=== PATIENT | male | born 1950 | race Caucasian/White ===

== ENCOUNTER 2017-11-09 15:02 | Inpatient (IN) | payer MEDICARE, MEDICAID ==
[~2017-11-09 15:02] MED LIST: Albuterol Nebulizer 2.5mg/3mL HHN PRN
--- NOTE | 2017-11-09 15:25 | ED Physician Chart ---
ED Chief Complaint/HPI - Patient Information Date Seen:: 11/09/17 Time Seen:: 15:17 Chief Complaint:: Pt has been noticed to have increased agitation since about 8 am today. History of Present Illness:: Brought in by caregiver Jasper as well as as400 administrator Mr. Ellsworth because pt was noticed to have increased agitation since about 8 am today. Pt at times hits his head with his hands, but no apparent injury has been noticed. Pt has h/ o dementia and is essentially nonverbal. Pt does not cooperate. H & P are thus limited. Info is primarily from caregiver. Allergies:: Allergies Allergy/AdvReac Type Severity Reaction Status Date / Time No Known Allergies Allergy Verified 11/09/17 15:09 Vitals:: Vital Signs - 8 hr 11/09/17 15:09 Temp 98.4 F HR 89 RR 17 BP 126/81 O2 Sat % 97 Historian:: Medical Records, Other (caregiver Jasper) Family MD/PCP:: Dr. Suero LMP:: N/A Review:: Nurse's Note Reviewed ED Review of Systems - Review of Systems General/Constitutional: No fever, Other (Pt does not cooperate for ROS) Skin: No skin lesions, No rash, No bruising Pulmonary: No SOB GI: No nausea, No vomiting, No diarrhea, No pain ED Past Medical History - Past Medical History Past Medical History: HTN, Thyroid disorder, Dementia Family History: Other (Pt does not cooperate to provide info on FHx.) Social History: Care Facility Surgical History: other (Pt does not cooperate to provide info on Surgical Hx.) Psychiatricy History: Dementia Medication: Reviewed Family Medical History - Family Member Mother History Unknown: Yes Ethnicity: Non- Other Medical History: Pt non-verbal. Unable to obtain family history. ED Physical Exam - Physical Examination General/Constitutional: Awake, Well-developed, well-nourished, Alert, No distress Other Gen/Cons comments:: Breathes comfortably. Pt is uncooperative and at times becomes agitated. Pt does not follow instructions and repeatedly attempts to climb out of gurney. Head: Atraumatic Eyes: Lids, conjuctiva normal, PERRL, EOMI Skin: No rash, No ecchymosis, Well hydrated, No lymphadenopathy ENMT: External ears, nose nl, TM canals nl, Nasal exam nl, Oropharynx nl, Tonsils nl Other ENMT comments:: Poor dentition with multiple missing teeth. Neck: Nontender, Full ROM w/o pain, No JVD, No nuchal rigidity, No mass, No stridor Respiratory: Nl effort/Exclusion, Clear to Auscultation, No Wheeze/Rhonchi/Rales Cardio Vascular: RRR, No murmur, gallop, rubs GI: No tenderness/rebounding/guarding, No organomegaly, No hernia, Normal BS's, Nondistended, No McBurney tenderness Other GI comments:: Abdomen is soft. Extremities: No tenderness or effusion, Full ROM, normal strength in all extremities, No edema Other Neuro/Psych comments:: alert and responsive to voice and tactile stimuli. Pt is nonverbal. Spontaneous movements noticed in all 4 extremities. Pt does not cooperate for full neurological exam. Misc: Normal back, No paraspinal tenderness ED Labs/Radiology/EKG Results - Lab Results Results: Laboratory Tests 11/09/17 11/09/17 11/09/17 15:49 15:49 15:49 WBC 10.2 RBC 4.92 Hgb 14.5 Hct 43.1 MCV 87.6 MCH 29.4 MCHC Differential 33.6 RDW 12.9 Plt Count 339 MPV 8.0 Neutrophils % 70.0 Lymphocytes % 22.0 Monocytes % 6.5 Eosinophils % 0.9 Basophils % 0.6 PT 9.9 INR 0.95 PTT (Actin FS) 23.6 L Sodium 131 L Potassium 3.3 L Chloride 100 Carbon Dioxide 21.4 Anion Gap 12.9 BUN 13 Creatinine 0.9 Est GFR ( Amer) > 60.0 Est GFR (Non-Af Amer) > 60.0 BUN/Creatinine Ratio 14.4 Glucose 107 H Calcium 9.2 Total Bilirubin 0.5 AST 12 L ALT 12 Alkaline Phosphatase 112 H Troponin I Total Protein 6.6 Albumin 4.1 L Globulin 2.5 Albumin/Globulin Ratio 1.6 Urine Source Urine Color Urine Clarity Urine pH Ur Specific [place] Urine Protein Urine Glucose (UA) Urine Ketones Urine Blood Urine Nitrate Urine Bilirubin Urine Urobilinogen Ur Leukocyte Esterase Urine RBC Urine WBC Ur Epithelial Cells Urine Bacteria 11/09/17 11/09/17 15:49 16:15 WBC RBC Hgb Hct MCV MCH MCHC Differential RDW Plt Count MPV Neutrophils % Lymphocytes % Monocytes % Eosinophils % Basophils % PT INR PTT (Actin FS) Sodium Potassium Chloride Carbon Dioxide Anion Gap BUN Creatinine Est GFR ( Amer) Est GFR (Non-Af Amer) BUN/Creatinine Ratio Glucose Calcium Total Bilirubin AST ALT Alkaline Phosphatase Troponin I < 0.01 L Total Protein Albumin Globulin Albumin/Globulin Ratio Urine Source CATH Urine Color STRAW Urine Clarity CLEAR Urine pH 6.0 Ur Specific [place] <= 1.005 Urine Protein NEGATIVE Urine Glucose (UA) NEGATIVE Urine Ketones NEGATIVE Urine Blood TRACE Urine Nitrate NEGATIVE Urine Bilirubin NEGATIVE Urine Urobilinogen 0.2 Ur Leukocyte Esterase NEGATIVE Urine RBC 2-5 H Urine WBC NONE SEEN Ur Epithelial Cells NONE SEEN Urine Bacteria NONE SEEN - EKG Interpretations EKG Time:: 15:52 Rate & Rhythm: NSR with VR 91 Comments:: LAE, LBBB, NSSTT changes. ED Septic Shock - . Is Septic Shock (SBP<90, OR Lactate>4 mmol\L) present?: No - <6hrs of presentation: Vital Signs: Vital Signs - 8 hr 11/09/17 15:09 Temp 98.4 F HR 89 RR 17 BP 126/81 O2 Sat % 97 ED Reassessment (Disposition) - Reassessment Reassessment:: 1715 Pt is now calm. Remaining lab results just became available. Pt has been cleared medically. 1720 Nursing staff related that Dr. Feliciano called and already decided to admit pt to Geropsych Unit, and Dr. Rojas is the in house medical physician for the patient. Reassessment Condition:: Improved - Diagnosis Diagnosis:: Dementia with increased agitation. Mild hypokalemia. - Patient Disposition Admitted to:: [facility] Admitting Medical Physician:: Mayito Rojas Admitting Psych Physician:: Stan Feliciano Time:: 17:20 Condition at Disposition:: Improved ED Discharge Plan - Patient Disposition Admit/Discharge/Transfer: Acute Care w/in this hosp
[2017-11-09] MEDS ORDERED: Haloperidol Lactate 5 mg/mL 1mL Vial ONE (15:42)
[2017-11-09] MEDS ORDERED: Haloperidol Lactate 5 mg/mL 1mL Vial IM STA (15:42)
[2017-11-09 16:10] LABS: % BASOPHILS 0.6 % (0.0-2.0); % EOSINOPHILS 0.9 % (0.0-5.0); % MONOCYTES 6.5 % (2.0-10.0); BASOPHILE ABSOLUTE 0.1 Th/cumm (0-0.2); EOSINOPHILE ABSOLUTE 0.1 Th/cmm (0.1-0.4); HEMATOCRIT 43.1 % (41.0-60); HEMOGLOBIN 14.5 gm/dL (12-16); LYMPHOCYTE ABSOLUTE 2.2 Th/cmm (1.5-3.0); MEAN CELL VOLUME 87.6 fl (80-99); MEAN CORPUSCULAR HEMOGLOBIN 29.4 pg (27.0-31.0); MEAN CORPUSCULAR HGB CONC 33.6 pg (28.0-36.0); MONOCYTE ABSOLUTE 0.7 Th/cmm (0.3-1.0); NEUTROPHILE ABSOLUTE 7.1 Th/cmm (1.8-8.0); PLATELET COUNT 339 Th/cmm (150-400); RED BLOOD COUNT 4.92 Mil/cmm (3.80-5.80); RED CELL DISTRIBUTION WIDTH 12.9 % (11.5-20.0); WHITE BLOOD COUNT 10.2 Th/cmm (4.8-10.8)
[2017-11-09 16:13] LABS: ALB/GLOB RATIO 1.6 (1.0-1.8); ALBUMIN 4.1 gm/dL (4.2-5.5); ALKALINE PHOSPHATASE 112 U/L (34-104); ANION GAP 12.9 (7.0-16.0); BILIRUBIN,TOTAL 0.5 mg/dL (0.3-1.0); BUN - UREA NITROGEN 13 mg/dL (7-25); CALCIUM SERUM 9.2 mg/dL (8.6-10.3); CARBON DIOXIDE 21.4 mEq/L (21.0-31.0); CHLORIDE 100 mEq/L (98-107); CREATININE - SERUM 0.9 mg/dL (0.7-1.3); GFR AFRICAN-AMERICAN > 60.0 ml/min (>90); GFR NON AFRICAN-AMERICAN > 60.0 ml/min; GLUCOSE 107 mg/dL (70-105); INR 0.95 (0.5-1.4); POTASSIUM SERUM 3.3 mEq/L (3.5-5.1); PROTHROMBIN TIME (TEST) 9.9 SECONDS (9.5-11.5); SGOT 12 U/L (13-39); SGPT/ALT 12 U/L (7-52); SODIUM SERUM 131 mEq/L (136-145); TOTAL PROTEIN,SERUM 6.6 gm/dL (6.0-8.3)
[2017-11-09 16:24] LABS: URINE MICROSCOPIC INDICATED? YES; URINE SOURCE CATH
[2017-11-09 16:26] LABS: URINE BILIRUBIN NEGATIVE (NEGATIVE); URINE BLOOD TRACE (NEGATIVE); URINE GLUCOSE (UA) NEGATIVE (NEGATIVE); URINE KETONE NEGATIVE (NEGATIVE); URINE LEUKOCYTE ESTERASE NEGATIVE (NEGATIVE); URINE NITRATE NEGATIVE (NEGATIVE); URINE PROTEIN NEGATIVE (NEGATIVE); URINE UROBILINOGEN 0.2 E.U./dL (0.2 - 1.0)
[2017-11-09 16:47] LABS: URINE CLARITY CLEAR (CLEAR); URINE COLOR STRAW
[2017-11-09 16:48] LABS: URINE BACTERIA NONE SEEN /hpf (NONE SEEN); URINE EPITHELIAL CELLS NONE SEEN /lpf (FEW); URINE WBC NONE SEEN /hpf (0-5)
[2017-11-09] MEDS ORDERED: Potassium Chloride 20 mEq ER Tab PO ONE (17:13)
[2017-11-09] MEDS ORDERED: Potassium Chloride Elixir 20 mEq /15 mL UDC ONE (17:24)
[2017-11-09] MEDS ORDERED: Maalox 30 mL Cup PO PRN (20:52)
[2017-11-09] MEDS ORDERED: Magnesium Hydroxide (MOM) 30 mL UDC PO PRN (20:52)
[2017-11-09 21:47] VITALS: BP 124/76
[2017-11-09] MEDS ORDERED: Codeine /Guaifenesin 200mg-20mg/10 mL UDC PO PRN (21:48)
[2017-11-10] MEDS: Levothyroxine 0.075 Mg Tab PO SCH (06:40)
[2017-11-10] MEDS: Benztropine 1 MG TAB PO SCH (08:19)
[2017-11-10] MEDS: Multivitamin Tab PO SCH (08:19)
[2017-11-10] MEDS ORDERED: Ferrous Sulfate 325 MG TAB PO SCH (09:00)
[2017-11-10] MEDS ORDERED: RISPERIDONE 2 MG PO SCH (09:00)
[2017-11-10] MEDS ORDERED: Fexofenadine 60 mg Tab PO SCH (09:00)
[2017-11-10] MEDS: Fluticasone Propionate 0.05mg/Actuation 16gm Nasal Spray NS SCH (09:35)
--- NOTE | 2017-11-10 10:03 | Psychosocial Evaluation ---
DATE OF SERVICE: PSYCHIATRIC INITIAL EVALUATION AND MENTAL STATUS EXAM PATIENT'S AGE: 67. SEX: Male. PHYSICIAN: Stan Feliciano MD, MPH. CHIEF COMPLAINT: Agitation and irritability. HISTORY OF PRESENT ILLNESS: The patient is a 67-year-old male who is living in [facility]. The patient has been extremely agitated and irritable in the [facility]dc and he has been hitting himself and hitting staff and other patients in the long term where he lives. The patient also is developmentally disabled and he belongs to [facility]. He was not able to follow any of staff directions. Upon arrival into the hospital, the patient was extremely irritable and agitated and tried to get out of the Emergency Room and became violent and he has to be given emergency medications to calm him down. The patient is still extremely irritable and agitated. During my interview, the patient also was actively responding and he was shouting and waving his hands inappropriately. He also was in angry and in irritable mood. PAST PSYCHIATRIC HISTORY: The patient has history of developmentally disabled and dementia. PAST MEDICAL HISTORY: The patient has no major medical problems. SOCIAL HISTORY: The patient lives in [facility]. No known alcohol or drug use. ALLERGIES: No known allergies. MENTAL STATUS EXAMINATION: The patient appeared age. Anxious. Irritable mood. Flat affect. Thought processes are disorganized. The patient did not answer questions regarding hallucinations or delusions because of his inability to answer questions coherently. He actively responded to stimuli. He is also easily agitated. He seems to be of moderate mental retardation, based on his verbal ability and on observations. ASSESSMENT: PRIMARY DIAGNOSIS: Unspecified psychosis. SECONDARY DIAGNOSIS: Moderate, mental disability. TREATMENT PLAN: Continue to monitor his behavior closely. Also, we will start Seroquel. We will discontinue Risperdal. We will monitor behavior. ESTIMATED LENGTH OF STAY: 5-7 days. THE PATIENT'S STRENGTHS AND WEAKNESSES: The patient has support from the long term. Weakness is his poor impulse control. AFTER DISCHARGE PLAN: The patient will return to [place] with plans for outpatient treatment. [facility]# [id number]
--- NOTE | 2017-11-10 20:08 | History & Physical ---
ADMIT DATE: 11/10/2017 HISTORY SOURCE: Reviewing the chart, talking to the staff. HISTORY OF PRESENT ILLNESS: A 67-year-old male admitted to Geropsych Unit at [facility] after the patient was noted to have increasing agitation, acute in onset. The patient was also hitting his head with his hands. The patient did not have any apparent injury. Does have underlying diagnosis of dementia. The patient was worked up in the ER and now subsequently admitted to the hospital for further care. PAST MEDICAL HISTORY: Remarkable for: 1. Alzheimer dementia. 2. Allergic rhinosinusitis. 3. Hypothyroidism. 4. DJD. 5. Hypertension. 6. Psychotic disorder. 7. History of anemia. MEDICATIONS AT HOME: He is taking p.r.n. albuterol inhaler, Norvasc, Cogentin, ferrous sulfate, Elisha, Flonase, Robitussin, Motrin, Synthroid, Ativan, milk of magnesia, multivitamin, Seroquel, Diovan, and Ambien. ALLERGIES: The patient is not allergic to medication. SOCIAL HISTORY: The patient resides in assisted living facility. The patient has no history of any smoking cigarette, alcohol or drug use. FAMILY MEDICAL HISTORY: Unknown. REVIEW OF SYSTEMS: Unable to get meaningful history from the patient. PHYSICAL EXAMINATION: GENERAL: A 67-year-old alert, awake, lying in the bed, unable to give any meaningful history. VITAL SIGNS: Temperature 98, pulse is 79, respiratory rate is 18, blood pressure 123/73. HEENT: Normocephalic, atraumatic. Extraocular muscles are intact. Tongue was pink and coated. No oral lesions. No exudate. NECK: Supple, no JVD, no hepatojugular reflex. No thyromegaly. No carotid bruit. HEART: Both heart sounds are regular. No S3, no S4. CHEST AND LUNGS: Equal in expansion, no wheezing, no crackles. ABDOMEN: Soft. No guarding, no rigidity. Bowel sounds present. No palpable mass. EXTREMITIES: No edema, no cyanosis, no calf tenderness. Diffuse osteoarthritic changes noted. NEUROLOGIC: Alert, awake, but not following any commands. AVAILABLE DIAGNOSTIC DATA: White count of 10.2, hemoglobin of 14.5, platelet count of 339. PT, PTT are normal. Sodium 131, potassium 3.3, chloride 100, CO2 21.4, BUN and creatinine is 13 and 0.9. Urinalysis is unremarkable. EKG has underlying left bundle branch block. CLINICAL IMPRESSION: 1. Acute exacerbation of psychotic disorder. 2. Hypertension. 3. Hypothyroidism. 4. DJD. 5. Dementia. 6. Hypokalemia. 7. High risk for fall. PLAN: The patient was admitted to [facility]. Geriatric psychiatric care as per Dr. Feliciano. Resume the patient's medication for hypertension, Diovan and Norvasc. Continue Synthroid for hypothyroidism. Continue to provide symptomatic care with inhalation therapy p.r.n., Motrin for the pain, cough syrup for cough along with nutritional support with multivitamin. Fall precautions will be given as well. General nursing care will be provided. Nutritional support will be added. Follow up lab will be done as well and will continue to follow this patient during his stay at [facility]. I sincerely thank you, Dr. Feliciano for giving me the opportunity to participate in the patient of yours. JOB# [id number]
[2017-11-10] MEDS: Fexofenadine 60 mg Tab PO SCH (22:38)
[2017-11-11] MEDS: Levothyroxine 0.075 Mg Tab PO SCH (06:41)
[2017-11-11 09:17] LABS: ALB/GLOB RATIO 1.5 (1.0-1.8); ALBUMIN 3.8 gm/dL (4.2-5.5); ALKALINE PHOSPHATASE 105 U/L (34-104); ANION GAP 10.7 (7.0-16.0); BILIRUBIN,TOTAL 0.5 mg/dL (0.3-1.0); BUN - UREA NITROGEN 13 mg/dL (7-25); CALCIUM SERUM 8.9 mg/dL (8.6-10.3); CARBON DIOXIDE 23.9 mEq/L (21.0-31.0); CHLORIDE 102 mEq/L (98-107); CREATININE - SERUM 0.8 mg/dL (0.7-1.3); GFR AFRICAN-AMERICAN > 60.0 ml/min (>90); GFR NON AFRICAN-AMERICAN > 60.0 ml/min; GLUCOSE 117 mg/dL (70-105); POTASSIUM SERUM 3.6 mEq/L (3.5-5.1); SGOT 20 U/L (13-39); SGPT/ALT 15 U/L (7-52); SODIUM SERUM 133 mEq/L (136-145); TOTAL PROTEIN,SERUM 6.3 gm/dL (6.0-8.3)
[2017-11-11] MEDS: Benztropine 1 MG TAB PO SCH (09:31)
[2017-11-11] MEDS: Multivitamin Tab PO SCH (09:32)
[2017-11-11] MEDS: Fexofenadine 60 mg Tab PO SCH ×2 (09:35→21:00)
[2017-11-11] MEDS: Fluticasone Propionate 0.05mg/Actuation 16gm Nasal Spray NS SCH (09:36)
--- NOTE | 2017-11-12 04:28 | Progress Notes ---
DATE: 11/11/2017 SUBJECTIVE: The patient seen and examined. The patient is lying in the bed. The patient is nonverbal. Discussed with nursing staff about a 24-hour event. The patient has been eating fairly well. The patient trying to communicate, but was unable to understand. PHYSICAL EXAMINATION: VITAL SIGNS: Temperature 97, pulse is 76, respiratory rate is 18, blood pressure 130/89. HEENT: No facial asymmetry. NECK: Supple, no JVD. HEART: Regular. CHEST: Equal in expansion, no wheezing, no crackles. ABDOMEN: Soft. EXTREMITIES: No edema. AVAILABLE DIAGNOSTIC DATA: Sodium 133, potassium 3.6, chloride 102, CO2 of 23.9, BUN and creatinine is 13 and 0.8, glucose of 117, alkaline phosphatase of 105, albumin of 3.8. CLINICAL IMPRESSION: 1. Alzheimer's type dementia. 2. Psychotic disorder. 3. Hypertension. 4. Hypothyroidism. 5. Degenerative joint disease. 6. Psychotic disorder. 7. Hypokalemia, resolved. PLAN: 1. Psych medications and follow up by psychiatrist. 2. Continue Synthroid. 3. Monitor blood pressure. 4. Antihypertensive medicine. 5. Fall precautions. 6. General nursing care. 7. Care plan reviewed and discussed with staff. JOB# [id number]
[2017-11-12] MEDS: Levothyroxine 0.075 Mg Tab PO SCH (06:38)
[2017-11-12] MEDS: Multivitamin Tab PO SCH (09:54)
[2017-11-12] MEDS: Fexofenadine 60 mg Tab PO SCH ×2 (09:55→20:13)
[2017-11-12] MEDS: Fluticasone Propionate 0.05mg/Actuation 16gm Nasal Spray NS SCH (09:57)
[2017-11-12] MEDS: Benztropine 1 MG TAB PO SCH (09:58)
--- NOTE | 2017-11-12 16:34 | Progress Notes ---
DATE: 11/11/2017 SUBJECTIVE: Chart reviewed and the patient interviewed. Also discussed the patient's condition with the staff and reviewed records and labs. The patient is still extremely irritable and anxious. The patient also is still easily agitated. Also, wandering around the unit confused. The patient also is actively responding and is talking to self and laughing inappropriately. Also, unable to answer any of the questions coherently. On the other hand, he seems to be slightly calmer than yesterday. ASSESSMENT: The patient is still agitated and psychotic. TREATMENT PLAN: Continue monitoring his behavior and his condition closely. Also, continue Seroquel same dose and we will continue to follow up. [facility]# [id number]
[2017-11-13] MEDS: Levothyroxine 0.075 Mg Tab PO SCH (06:35)
[2017-11-13] MEDS: Fluticasone Propionate 0.05mg/Actuation 16gm Nasal Spray NS SCH (08:37)
[2017-11-13] MEDS: Multivitamin Tab PO SCH (08:38)
[2017-11-13] MEDS: Benztropine 1 MG TAB PO SCH (08:38)
[2017-11-13] MEDS: Fexofenadine 60 mg Tab PO SCH ×2 (08:38→20:45)
--- NOTE | 2017-11-13 21:52 | Progress Notes ---
DATE: IDENTIFICATION: A 67-year-old male. SUBJECTIVE: The patient was seen and examined. The patient is lying in the bed, unable to get meaningful history from the patient. The patient continued to remain agitated. Psych medication has been adjusted by psychiatrist. PHYSICAL EXAMINATION: VITAL SIGNS: On today's exam, temperature 97.4, pulse 80, respiratory is 18, blood pressure 108/68. HEENT: No facial asymmetry. NECK: Supple, no JVD. HEART: Regular, no murmur. CHEST: Equal in expansion, no wheezing, no crackles. ABDOMEN: Soft. No guarding, rigidity. Bowel sounds heard. No palpable mass. EXTREMITIES: No edema, no cyanosis. NEUROLOGIC: Unable to assess the patient's mini mental status examination 0/30. CLINICAL IMPRESSION: 1. Alzheimer's type dementia. 2. Psychotic disorder with exacerbation. 3. Hypertension. 4. Hypothyroidism. 5. Degenerative joint disease. 6. High risk for fall. PLAN: 1. Psych medications and adjust medication adjustment per psychiatrist. 2. Fall precautions. 3. Antihypertensive medicine. 4. Synthroid. 5. General nursing care. 6. Nutritional support. 7. We will continue to follow this patient during his stay in the hospital. JOB# [id number]
[2017-11-14] MEDS: Levothyroxine 0.075 Mg Tab PO SCH (06:43)
[2017-11-14] MEDS: Fluticasone Propionate 0.05mg/Actuation 16gm Nasal Spray NS SCH (08:59)
[2017-11-14] MEDS: Benztropine 1 MG TAB PO SCH (09:00)
[2017-11-14] MEDS: Fexofenadine 60 mg Tab PO SCH ×2 (09:01→20:17)
[2017-11-14] MEDS: Multivitamin Tab PO SCH (09:03)
--- NOTE | 2017-11-14 10:09 | Progress Notes ---
DATE: SUBJECTIVE: Chart reviewed and the patient interviewed. Also discussed the patient's condition with the staff and reviewed records and labs. The patient is still confused and is still agitated. The patient also still needs lots of redirections with difficulty following directions because of his developmental disability. He also is still disheveled and personal hygiene is still poor. Otherwise, the patient is compliant with taking his medications with no side effects of medications. ASSESSMENT: The patient is still psychotic and agitated. TREATMENT PLAN: Continue to monitor his behavior and his condition closely and continue adjusting psychotropic medications and followup. JOB# [id number]
--- NOTE | 2017-11-14 12:52 | Progress Notes ---
DATE: 11/12/2017 SUBJECTIVE: Chart reviewed and the patient interviewed. Also discussed the patient's condition with the staff and reviewed records and labs. The patient is still agitated and still has episodes of irritability and anger. The patient also is still wandering around the unit and with unpredictable behavior and confused. The patient also still needs lots of redirection with difficulty following directions because he has developmental disability. Otherwise, the patient is compliant with taking his medications with no side effects of medications. ASSESSMENT: The patient is agitated and still psychotic. TREATMENT PLAN: We will increase Seroquel to 50 mg in the morning and 75 mg at bedtime. Also, continue to work on behavioral modification and monitor his behavior closely. [facility]# [id number]
--- NOTE | 2017-11-14 21:24 | Progress Notes ---
DATE: IDENTIFICATION: This is a 67-year-old male. SUBJECTIVE: The patient was seen and examined. The patient is lying in the bed, does not provide any meaningful history, discussed with nursing staff, no new event. OBJECTIVE: VITAL SIGNS: Temperature 97, pulse is 72, respiratory rate is 18, blood pressure 127/75. HEENT: No facial asymmetry. NECK: Supple, no JVD. HEART: Regular. CHEST: Equal in expansion, no wheezing, no crackles. ABDOMEN: Soft. No guarding, rigidity. Bowel sounds present. No palpable mass. EXTREMITIES: No edema. CLINICAL IMPRESSION: 1. Alzheimer's dementia. 2. Hypertension. 3. Hypothyroidism. 4. Degenerative joint disease. 5. Psychotic disorder exacerbation. 6. High risk for fall. PLAN: 1. Dementia medication. 2. Psych medication. 3. Psych followup. 4. Monitor blood pressure. 5. Monitor behavior. 6. Antihypertensive medicine. 7. Synthroid. 8. Fall precaution. 9. General nursing care. 10. Nutritional support. 11. The patient is stable for [facility]. JOB# [id number]
--- NOTE | 2017-11-14 23:29 | Progress Notes ---
DATE: 11/14/2017 SUBJECTIVE: Case was discussed with staff of the patient and reviewed records. Covering for Dr. Feliciano. This is a 67-year-old male who was admitted on 11/09/2017. He came from [facility]. He has been extremely agitated and irritable in the intermediate, has been hitting himself and hitting the staff and other patients in the [facility] where he is living. He has also been mentally disabled. He belongs to a [facility] where he was not able to staff direction. On arrival to the hospital, the patient was pacing, irritable, agitated, tried to get out of the Emergency Room and became violent and has been given emergency medication to calm him down. He was shouting, waving his hands inappropriately, angry, irritable. The patient also with a history of dementia. The patient continues to need a lot of redirection. Continues to be very confused, agitated, unable to carry on a conversation or make safe plan for self-care. Still looking disheveled, disorganized, internally preoccupied; however, he is compliant with the medications and his current medications include albuterol inhaler 2.5 mg every 4 hours and amlodipine 5 mg daily, Cogentin 2 mg daily. He is on codeine, guaifenesin 7.5 mg every 8 hours as needed. He is also on Elisha 60 mg every 12 hours and fluticasone 2 sprays in the nose daily. He is on levothyroxine 0.15 mg daily, Ativan 0.5 mg tablet as needed, multivitamin 1 tablet daily, Seroquel 0.75 mg at bedtime and 50 mg in the morning, Diovan 160 mg daily with no side effects, no sedation, no nausea, no extrapyramidal symptoms. He is a high fall risk because of the medication he takes, unstable, and his dementia; and we will continue to work the patient in group therapy, milieu therapy, adjust medications as needed. JOB# [id number]
[2017-11-15] MEDS: Levothyroxine 0.075 Mg Tab PO SCH (06:35)
[2017-11-15] MEDS: Benztropine 1 MG TAB PO SCH (09:04)
[2017-11-15] MEDS: Multivitamin Tab PO SCH (09:07)
[2017-11-15] MEDS: Fexofenadine 60 mg Tab PO SCH ×2 (09:43→20:20)
[2017-11-15] MEDS: Fluticasone Propionate 0.05mg/Actuation 16gm Nasal Spray NS SCH (10:08)
--- NOTE | 2017-11-15 22:03 | Progress Notes ---
DATE: 11/15/[address] Humphreys covering for Dr. Feliciano. IDENTIFYING DATA: A 67-year-old male with a history of severe developmental delay. He had been aggressive when he first came in. Today on [id number] evaluation, the patient is nonverbal, smiles, sits down, does not provide much more information beyond that. MENTAL STATUS EXAMINATION: Disheveled, disorganized, internally preoccupied. CURRENT MEDICATIONS: The patient is on Norvasc 5, Cogentin, Elisha, Flonase, Motrin, Synthroid, Ativan as needed, Seroquel 50 mg p.o. every day and 75 at night time, Diovan and Ambien as needed. ASSESSMENT AND PLAN: A 67-year-old male who observed to be continued internally preoccupied, unpredictable, needed some redirection. His medication continues to build up a steady stable. Continue with current medication, treatment plan and goals. JOB# [id number]
[2017-11-16] MEDS: Levothyroxine 0.075 Mg Tab PO SCH (06:37)
[2017-11-16] MEDS: Fexofenadine 60 mg Tab PO SCH ×2 (09:16→21:02)
[2017-11-16] MEDS: Benztropine 1 MG TAB PO SCH (09:16)
[2017-11-16] MEDS: Multivitamin Tab PO SCH (09:16)
[2017-11-16] MEDS: Fluticasone Propionate 0.05mg/Actuation 16gm Nasal Spray NS SCH (09:18)
--- NOTE | 2017-11-17 03:38 | Progress Notes ---
DATE: SUBJECTIVE: The patient was seen, chart reviewed and discussed with staff. The patient continues to be nonverbal, generally answers questions with nods and shakes his head, but sometimes can contradict to himself. According to staff, he has been taking his medications. Generally been redirectable. PLAN: The patient continues to be internally preoccupied, unpredictable, so that he will require inpatient care center treatment. We will monitor patient on a daily basis for response to medication and titrate meds as needed. JOB# [id number]
[2017-11-17] MEDS: Levothyroxine 0.075 Mg Tab PO SCH (06:33)
[2017-11-17] MEDS: Benztropine 1 MG TAB PO SCH (09:33)
[2017-11-17] MEDS: Multivitamin Tab PO SCH (09:33)
[2017-11-17] MEDS: Fexofenadine 60 mg Tab PO SCH ×2 (10:10→21:26)
[2017-11-17] MEDS: Fluticasone Propionate 0.05mg/Actuation 16gm Nasal Spray NS SCH (10:11)
--- NOTE | 2017-11-17 23:24 | Progress Notes ---
DATE: 11/17/2017 Case was discussed with staff of the patient, reviewed records. The patient continues to be confused, unable to participate in a meaningful conversation that basically nonverbal, trying to make movements with his hands when I talked to him. Continues to be unpredictable, impulsive, internally preoccupied. He has been compliant with the medication with no side effects, no sedation, no nausea, no extrapyramidal symptoms. We will continue to work with the patient. No change in medications since 11/14/2017. We will continue outpatient group therapy, milieu therapy, and adjust the medications as needed. JOB# [id number]
--- NOTE | 2017-11-18 01:23 | Progress Notes ---
DATE: 11/17/2017 SUBJECTIVE: The patient seen and examined. The patient is lying in the bed, unable to get meaningful history from the patient. The patient is lying in the bed without any distress. PHYSICAL EXAMINATION: VITAL SIGNS: Temperature 98.2, pulse 71, respiratory 18, blood pressure 130/75. HEENT: No facial asymmetry. NECK: Supple, no JVD. HEART: Regular. CHEST: Lung equal in expansion, no wheezing, no crackles. ABDOMEN: Soft. No guarding, rigidity. Bowel sounds heard. No palpable mass. EXTREMITIES: No edema. CLINICAL IMPRESSION: 1. Alzheimer dementia. 2. Hypertension. 3. Hypothyroidism. 4. Degenerative joint disease. 5. Psychotic disorder exacerbation. 6. High risk for fall. PLAN: 1. Psych medication. 2. Psych followup. 3. Monitor blood pressure. 4. Antihypertensive medicine. 5. Synthroid. 6. Fall precaution. 7. General nursing care. 8. Nutritional support. 9. We will continue to follow this patient during his stay in the hospital. JOB# [id number]
[2017-11-18] MEDS: Levothyroxine 0.075 Mg Tab PO SCH (06:34)
[2017-11-18] MEDS: Benztropine 1 MG TAB PO SCH (08:36)
[2017-11-18] MEDS: Multivitamin Tab PO SCH (08:36)
[2017-11-18] MEDS: Fexofenadine 60 mg Tab PO SCH ×2 (08:41→21:22)
[2017-11-18] MEDS: Fluticasone Propionate 0.05mg/Actuation 16gm Nasal Spray NS SCH (08:41)
--- NOTE | 2017-11-18 21:24 | Progress Notes ---
DATE: 11/18/[address] Feliciano. Case discussed with staff of the patient and reviewed records. The patient continues to be unable to communicate. Continues to be unpredictable, impulsive, needing redirection. Continues to be unable to make safe plan for self-care and no side effects to the medication, no sedation, no nausea and we will continue to work with the patient in group therapy, milieu therapy, and adjust medications. JOB# [id number]
[2017-11-19] MEDS: Levothyroxine 0.075 Mg Tab PO SCH (06:40)
[2017-11-19] MEDS: Benztropine 1 MG TAB PO SCH (09:43)
[2017-11-19] MEDS: Multivitamin Tab PO SCH (09:45)
[2017-11-19] MEDS: Fluticasone Propionate 0.05mg/Actuation 16gm Nasal Spray NS SCH (09:51)
[2017-11-19] MEDS: Fexofenadine 60 mg Tab PO SCH ×2 (09:51→21:33)
--- NOTE | 2017-11-19 23:22 | Progress Notes ---
DATE: The patient is a 67-year-old male. SUBJECTIVE: The patient seen and examined. The patient is sitting in the chair. No new event and unable to get meaningful history from the patient. Discussed with nursing staff about their concern. PHYSICAL EXAMINATION: VITAL SIGNS: Temperature 97, pulse is 64, respiratory rate 18, and blood pressure 144/70. HEENT: No facial asymmetry. Poor dentition noted. Pupil react to light. Tongue were pink and coated. NECK: Supple, no JVD, lymphadenopathy, thyromegaly. HEART: Regular, no murmur. CHEST: Lung equal in expansion. No wheezing, no crackles. ABDOMEN: Soft, no guarding or rigidity. Bowel sounds heard. No palpable mass. EXTREMITIES: No edema, no cyanosis. NEUROLOGIC: Nonfocal. CLINICAL IMPRESSION: 1. Alzheimer dementia. 2. Hypertension. 3. Hyperlipidemia. 4. Hypothyroidism. 5. Degenerative joint disease. 6. Psychotic disorder. 7. High risk for fall. PLAN: 1. Some dementia and psych medication as per psychiatrist. 2. Monitor blood pressure. 3. Antihypertensive medicine. 4. General nursing care. 5. Nutritional support. 6. Fall precaution. 7. Chronic disease management. 8. Symptoms management. 9. Medication management. 10. We will continue to follow this patient during the stay in the hospital. JOB# [id number]
--- NOTE | 2017-11-20 01:23 | Progress Notes ---
DATE: 11/19/2017 SUBJECTIVE: Chart reviewed and the patient interviewed. Also, I reviewed records and labs. The patient is still unpredictable and confused. The patient is pacing up and down the unit. The patient also still needs lots of redirections, but it seems to be slightly easier to redirect him. Also, decreased self-destructive behavior. The patient continued to comply with taking his medications with no side effects of medications. ASSESSMENT: The patient is less psychotic and less agitated, but still needs lots of redirections. TREATMENT PLAN: Continue monitoring his behavior and his condition closely. Also, continue working on poor impulse control and behavior modification. Also, planning to talk to [facility] safety administrator to check if they will take the patient back when he is having better impulse control and complete the adjustment of his psychotropic medications. JOB# [id number]
[2017-11-20] MEDS: Levothyroxine 0.075 Mg Tab PO SCH (06:45)
[2017-11-20] MEDS: Benztropine 1 MG TAB PO SCH (09:11)
[2017-11-20] MEDS: Fluticasone Propionate 0.05mg/Actuation 16gm Nasal Spray NS SCH (09:13)
[2017-11-20] MEDS: Multivitamin Tab PO SCH (09:13)
[2017-11-20] MEDS: Fexofenadine 60 mg Tab PO SCH ×2 (09:17→21:30)
--- NOTE | 2017-11-20 23:51 | Progress Notes ---
DATE: SUBJECTIVE: Chart reviewed and the patient interviewed. Also discussed the patient's condition with the staff and reviewed the records and labs. The patient continue to be confused. The patient also is restless and is still easily agitated. The patient also needs lots of redirections and he is still having difficulty with redirections. Otherwise, the patient is compliant with taking his medications with no side effects of medications. ASSESSMENT: The patient is still confused and agitated. TREATMENT PLAN: We will continue monitoring his behavior and his condition closely and work on behavioral modifications. Also, we will increase Seroquel to 50 mg in the morning and 100 mg at bedtime and we will continue to follow up. JOB# [id number]
[2017-11-21] MEDS: Levothyroxine 0.075 Mg Tab PO SCH (06:33)
[2017-11-21] MEDS: Benztropine 1 MG TAB PO SCH (11:00)
[2017-11-21] MEDS: Multivitamin Tab PO SCH (11:01)
[2017-11-21] MEDS: Fluticasone Propionate 0.05mg/Actuation 16gm Nasal Spray NS SCH (11:03)
[2017-11-21] MEDS: Fexofenadine 60 mg Tab PO SCH ×2 (11:04→21:01)
--- NOTE | 2017-11-21 21:54 | Progress Notes ---
DATE: 11/21/2017 SUBJECTIVE: Chart reviewed and the patient interviewed. Also discussed the patient's condition with the staff and reviewed records and labs. The patient is confused and is still easily agitated and irritable. The patient also is still trying to grab items from other patients and from staff. Also, easily agitated and is in angry and irritable mood and he has difficulty following directions, although it seems to be slightly easier to follow directions. The patient is compliant with taking his medications with no side effects of medications. ASSESSMENT: The patient is still confused and needs close monitoring. TREATMENT PLAN: Continue to monitor his behavior and condition closely. Also, continue to work on his irritability and agitation as well as an effective coping. Also, I increased Seroquel yesterday and we will continue to monitor the dose. JOB# [id number]
--- NOTE | 2017-11-22 00:23 | Progress Notes ---
DATE: SUBJECTIVE: The patient is a 67-year-old male. The patient is seen and examined, unable to get meaningful history from the patient. The patient remained hemodynamically stable. OBJECTIVE: VITAL SIGNS: Temperature 97, pulse is 74, respiratory rate 18, blood pressure 120/70. HEENT: No facial asymmetry. NECK: Supple, no JVD. HEART: Regular. CHEST: Lung equal in expansion. No wheezing, no crackles. ABDOMEN: Soft. No guarding, no rigidity. Bowel sounds are present. No palpable mass. EXTREMITIES: No edema. NEUROLOGIC: Alert, awake, trying to follow commands. CLINICAL IMPRESSION: 1. Psychotic disorder exacerbation. 2. Hypertension. 3. Alzheimer's dementia. 4. Hypothyroidism. 5. Degenerative joint disease. 6. High risk for fall. PLAN: 1. Psych medication. 2. Psych followup. 3. Monitor blood pressure. 4. Monitor behavior. 5. Antihypertensive medication. 6. Synthroid. 7. General nursing care. 8. Nutritional support. 9. Fall precautions. 10. Care plan reviewed and discussed with staff. JOB# [id number]
[2017-11-22] MEDS: Levothyroxine 0.075 Mg Tab PO SCH (06:50)
[2017-11-22] MEDS: Multivitamin Tab PO SCH (08:34)
[2017-11-22] MEDS: Benztropine 1 MG TAB PO SCH (08:34)
[2017-11-22] MEDS: Fluticasone Propionate 0.05mg/Actuation 16gm Nasal Spray NS SCH (08:35)
[2017-11-22] MEDS: Fexofenadine 60 mg Tab PO SCH ×2 (08:36→21:00)
--- NOTE | 2017-11-22 21:09 | Progress Notes ---
DATE: 11/22/2017 SUBJECTIVE: Case discussed with staff of the patient, reviewed records. Covering for Dr. Feliciano. This is a well-known case, I have seen him last week covering for Dr. Feliciano. The patient continues to be agitated, irritable, angry. Continues to grab items form other patients, from staff and needing redirection, getting upset, stubbs, unable to follow directions, very confused, needs close monitoring. He is a high fall risk because of his dementia and his medication that could make him sedated. He is sleeping and eating better. He is on Seroquel 50 mg in the morning and 100 mg at bedtime and he is on medication for high blood pressure, amlodipine 5 mg daily with Cogentin 2 mg daily and he is on albuterol inhaler 2.5 mg every 4 hours as needed and he is on Elisha 60 mg every 12 hours. Ibuprofen as needed every 8 hours 600 mg, fluticasone propionate 2 sprays nasally daily, levothyroxine 0.15 mg every other day, multivitamin 1 tablet daily and Diovan 160 mg daily, Ambien 5 mg at bedtime as needed for lack of sleep. The patient with no side effects to the medication, no sedation, no nausea, no extrapyramidal symptoms. We will continue to work with the patient in group therapy and milieu therapy and adjust the medications as needed. JOB# [id number]
[2017-11-23] MEDS: Levothyroxine 0.075 Mg Tab PO SCH (06:48)
[2017-11-23] MEDS: Multivitamin Tab PO SCH (08:56)
[2017-11-23] MEDS: Benztropine 1 MG TAB PO SCH (08:56)
[2017-11-23] MEDS: Fexofenadine 60 mg Tab PO SCH ×2 (08:57→20:45)
[2017-11-23] MEDS: Fluticasone Propionate 0.05mg/Actuation 16gm Nasal Spray NS SCH (08:57)
--- NOTE | 2017-11-23 18:25 | Progress Notes ---
DATE: 11/23/2017 IDENTIFICATION: A 67-year-old male. SUBJECTIVE: The patient seen and examined. The patient is nonverbal, unable to get meaningful history from the patient. Discussed with nursing staff for further care. PHYSICAL EXAMINATION: VITAL SIGNS: Temperature 98, pulse is 64, respiratory rate 18, blood pressure 144/70. HEENT: Poor dentition. No facial asymmetry. NECK: Supple, no JVD. HEART: Regular. CHEST AND LUNGS: Equal in expansion, no wheezing, no crackles. ABDOMEN: Soft. No guarding, rigidity. Bowel sounds are present. No palpable mass. EXTREMITIES: No edema. CLINICAL IMPRESSION: 1. Psychotic disorder. 2. Hypertension. 3. Alzheimer's dementia. 4. Hypothyroidism. 5. Degenerative joint disease. PLAN: 1. Psych medication. 2. Psych followup. 3. Monitor blood pressure. 4. Monitor behavior. 5. Synthroid. 6. General nursing care. 7. Fall precaution. 8. Chronic disease management. 9. Symptoms management. 10. Care plan reviewed and discussed with staff. JOB# [id number]
--- NOTE | 2017-11-23 21:18 | Progress Notes ---
DATE: 11/23/[address] Feliciano. Case was discussed with staff of the patient, reviewed records. The patient continues to be unable to care for himself. Continues to have poor insight. Continues to need redirection, unpredictable, and impulsive. Continues to be easily agitated, irritable, unpredictable, and impulsive. He is compliant with the medication with no side effect, sleeping better, and eating better. No side effects with the medication, no sedation, no nausea, and no extrapyramidal symptoms. We will continue to work with the patient in group therapy, milieu therapy, and adjust the medications as needed. JOB# [id number]
[2017-11-24] MEDS: Levothyroxine 0.075 Mg Tab PO SCH (06:43)
[2017-11-24] MEDS: Fluticasone Propionate 0.05mg/Actuation 16gm Nasal Spray NS SCH (09:23)
[2017-11-24] MEDS: Fexofenadine 60 mg Tab PO SCH ×2 (09:24→20:45)
[2017-11-24] MEDS: Multivitamin Tab PO SCH (09:25)
[2017-11-24] MEDS: Benztropine 1 MG TAB PO SCH (09:26)
--- NOTE | 2017-11-24 18:32 | Progress Notes ---
DATE: 11/24/2017 SUBJECTIVE: The patient seen and examined. The patient is lying in the bed. According to nursing staff, the patient is to going to be discharged to ____ Alzheimer's unit. The patient does not provide a meaningful history. The patient remained hemodynamically stable. Medication list has been reviewed, which has been noted. No significant changes for medications from the medical standpoint. PHYSICAL EXAMINATION: VITAL SIGNS: Blood pressure in my today is 111/69, pulse is 63, respiratory rate 19, and temperature 97.2. HEENT: Poor dentition. NECK: Supple, no JVD. HEART: Regular. CHEST: Lung equal in expansion. LUNGS: No wheezing, no crackles. ABDOMEN: Soft. EXTREMITIES: No edema. CLINICAL IMPRESSION: 1. Hypertension. 2. Psychotic disorder. 3. Dementia. 4. Hypothyroidism. 5. Degenerative joint disease. 6. Allergic rhinosinusitis. 7. History of asthma and chronic obstructive pulmonary disease. PLAN: Continue to use albuterol inhaler as needed. Continue Norvasc and Diovan as prescribed. Continue ProAir. Elisha and Flonase for allergic rhinosinusitis and levothyroxine for the hypothyroidism. The patient's psych medication and psych followup as per psychiatrist. The patient is medically stable to be discharged to lower level of care. JOB# [id number]
[2017-11-25] MEDS: Levothyroxine 0.075 Mg Tab PO SCH (06:50)
[2017-11-25] MEDS: Benztropine 1 MG TAB PO SCH (09:28)
[2017-11-25] MEDS: Multivitamin Tab PO SCH (09:28)
--- NOTE | 2017-11-25 10:49 | Progress Notes ---
DATE: 11/24/2017 PSYCHIATRIC PROGRESS NOTE SUBJECTIVE: Chart reviewed and the patient interviewed. Also discussed the patient's condition with the staff and reviewed records and labs. The patient is calmer and he is less irritable and less agitated. Slightly easier to redirect him. He is still having episodes of trying to steal food and coffee from other patients but seems to be slightly less than before and slightly easier to redirect him. Otherwise, the patient is compliant with taking his medications with no side effects of medications. ASSESSMENT: The patient is less psychotic and less agitated. TREATMENT PLAN: Continue to monitor his behavior, but planning to discharge the patient today, if the discharge plan has already completed by alumni relations coordinator. [facility]# [id number]
--- NOTE | 2017-11-25 16:16 | Discharge Summary ---
DATE OF DISCHARGE: I dictated his discharge summary yesterday, but for some reason, the patient was not able to be discharged and the patient discharged today. Please change the discharge summary date from yesterday to today and no other changes. JOB# [id number]
--- NOTE | 2017-11-25 16:45 | Progress Notes ---
DATE: SUBJECTIVE: The patient is going home today. The patient's board and care ____ asking for medication to be continued at home. The patient does not provide a meaningful history. PHYSICAL EXAMINATION: VITAL SIGNS: Temperature 97.3, pulse is 51, respiratory rate 18, and blood pressure 128/88. HEENT: No facial asymmetry. NECK: Supple, no JVD. HEART: Regular. CHEST: Lung equal in expansion. LUNGS: No wheezing, no crackles. ABDOMEN: Soft. EXTREMITIES: No edema. CLINICAL IMPRESSION: 1. Hypertension. 2. Hypothyroidism. 3. Degenerative joint disease. 4. Dementia. 5. Psychotic disorder. 6. Insomnia. PLAN: Write prescription for a patient's hypertension and hypothyroidism medications. The patient to have continuation of psych medication as the patient receiving by the psychiatrist. The patient is stable to be discharged back to board and care facility. JOB# [id number]
== END 2017-11-25 15:40 | DRG 885 ==
LOC: ER 15:02 → GERO2 19:24 → GERO 11-10 17:34
PROVIDERS: ADMIT Psychiatry & Neurology Psychiatry; ATTEND Psychiatry & Neurology Psychiatry
DX: F29 Unspecified psychosis not due to a substance or known physiological condition (principal); F02.80 Dementia in other diseases classified elsewhere, unspecified severity, without behavioral disturbance, psychotic disturbance, mood disturbance, and anxiety; F79 Unspecified intellectual disabilities; G30.9 Alzheimer's disease, unspecified; I10 Essential (primary) hypertension; E03.9 Hypothyroidism, unspecified; M19.90 Unspecified osteoarthritis, unspecified site; E87.6 Hypokalemia; Z91.81 History of falling
CPT/HCPCS: 36415-UA; 80053-TC; 81001-TC; 84484-TC; 85025-TC; 85610-TC; 90899; 93005; 94760; G0410; J1630; J2060; Z7610

== ENCOUNTER 2018-03-09 20:39 | Emergency (ER) | payer MEDICARE, MEDICAID ==
[2018-03-09] MEDS ORDERED: Lactated Ringer 1,000 ML IV ONE (21:09)
[2018-03-09 21:25] LABS: % BASOPHILS 2.8 % (0.0-2.0); % EOSINOPHILS 3.1 % (0.0-5.0); % LYMPHOCYTES 30.5 % (20.0-50.0); % NEUTROPHILS 55.6 % (40.0-80.0); BASOPHILE ABSOLUTE 0.3 Th/cumm (0-0.2); EOSINOPHILE ABSOLUTE 0.3 Th/cmm (0.1-0.4); HEMATOCRIT 43.5 % (41.0-60); HEMOGLOBIN 14.7 gm/dL (12-16); LYMPHOCYTE ABSOLUTE 3.1 Th/cmm (1.5-3.0); MEAN CELL VOLUME 85.3 fl (80-99); MEAN CORPUSCULAR HEMOGLOBIN 28.9 pg (27.0-31.0); MEAN CORPUSCULAR HGB CONC 33.9 pg (28.0-36.0); MEAN PLATELET VOLUME 7.9 fl; MONOCYTE ABSOLUTE 0.8 Th/cmm (0.3-1.0); NEUTROPHILE ABSOLUTE 5.7 Th/cmm (1.8-8.0); PLATELET COUNT 337 Th/cmm (150-400); RED CELL DISTRIBUTION WIDTH 12.3 % (11.5-20.0); WHITE BLOOD COUNT 10.2 Th/cmm (4.8-10.8)
[2018-03-09 21:37] LABS: URINE SOURCE CLEAN C
[2018-03-09 21:39] LABS: URINE BILIRUBIN NEGATIVE (NEGATIVE); URINE BLOOD TRACE (NEGATIVE); URINE GLUCOSE (UA) NEGATIVE (NEGATIVE); URINE KETONE NEGATIVE (NEGATIVE); URINE LEUKOCYTE ESTERASE NEGATIVE (NEGATIVE); URINE MICROSCOPIC INDICATED? YES; URINE NITRATE NEGATIVE (NEGATIVE); URINE PH 6.5 (4.6 - 8.0); URINE PROTEIN 100 mg/dL (NEGATIVE); URINE UROBILINOGEN 0.2 E.U./dL (0.2 - 1.0)
[2018-03-09 21:42] LABS: ALB/GLOB RATIO 1.4 (1.0-1.8); ALBUMIN 3.9 gm/dL (4.2-5.5); ALKALINE PHOSPHATASE 113 U/L (34-104); ANION GAP 9.7 (7.0-16.0); BILIRUBIN,TOTAL 0.3 mg/dL (0.3-1.0); BUN - UREA NITROGEN 13 mg/dL (7-25); CALCIUM SERUM 9.1 mg/dL (8.6-10.3); CARBON DIOXIDE 27.2 mEq/L (21.0-31.0); CHLORIDE 100 mEq/L (98-107); CREATININE - SERUM 0.8 mg/dL (0.7-1.3); GFR AFRICAN-AMERICAN > 60.0 ml/min (>90); GFR NON AFRICAN-AMERICAN > 60.0 ml/min; GLUCOSE 138 mg/dL (70-105); MAGNESIUM 2.2 mg/dL (1.9-2.7); PHOSPHOROUS 3.2 mg/dL (2.5-5.0); SGOT 12 U/L (13-39); SGPT/ALT 9 U/L (7-52); SODIUM SERUM 134 mEq/L (136-145); TOTAL PROTEIN,SERUM 6.7 gm/dL (6.0-8.3)
[2018-03-09 21:54] LABS: POTASSIUM SERUM 2.9 mEq/L (3.5-5.1)
[2018-03-09] MEDS ORDERED: Potassium Chloride 20 mEq ER Tab PO ONE ×2 (21:54→21:56)
[2018-03-09 21:58] LABS: URINE BACTERIA FEW /hpf (NONE SEEN); URINE COLOR YELLOW; URINE EPITHELIAL CELLS MANY /lpf (FEW); URINE WBC 0-2 /hpf (0-5)
[2018-03-09 21:59] LABS: URINE CLARITY HAZY (CLEAR)
--- NOTE | 2018-03-09 22:19 | ED Physician Chart ---
ED Chief Complaint/HPI - Patient Information Date Seen:: 03/09/18 Time Seen:: 20:40 Chief Complaint:: increased agitation History of Present Illness:: increased agitation---lives at a home. We have no geropsych beds here. Allergies:: Allergies Allergy/AdvReac Type Severity Reaction Status Date / Time No Known Allergies Allergy Verified 03/09/18 20:52 Vitals:: Vital Signs - 8 hr 03/09/18 20:40 Temp 98.1 F HR 105 RR 18 BP 141/95 O2 Sat % 95 ED Review of Systems - Review of Systems General/Constitutional: No fever, No chills, No weight loss, No weakness, No diaphoresis, No edema, No loss of appetite Skin: No skin lesions, No rash, No bruising Head: No headache, No light-headedness Eyes: No loss of vision, No pain, No diplopia ENT: No earache, No nasal drainage, No sore throat, No tinnitus Neck: No neck pain, No swelling, No thyromegaly, No stiffness, No mass noted Cardio Vascular: No chest pain, No palpitations, No PND, No orthopnea, No edema Pulmonary: No SOB, No cough, No sputum, No wheezing GI: No nausea, No vomiting, No diarrhea, No pain, No melena, No hematochezia, No constipation, No hematemesis G/U: No dysuria, No frequency, No hematuria Musculoskeletal: No bone or joint pain, No back pain, No muscle pain Endocrine: No polyuria, No polydipsia Psychiatric: Other (increased agitation.) Hematopoietic: No bruising, No lymphadenopathy Allergic/Immuno: No urticaria, No angioedema Neurological: No syncope, No focal symptoms, No weakness, No paresthesia, No headache, No seizure, No dizziness, No confusion, No vertigo ED Past Medical History - Past Medical History Obtainable: No Past Medical History: HTN, Thyroid disorder, Dementia, Other (precast worker gave us his past medical history: hypokalemia, Alzheimer's and intellectual disabilities) Family Medical History - Family Member Mother History Unknown: Yes Ethnicity: Unknown Living Status: Unknown Hx Family Cancer: (unknown) Hx Family Coronary Artery Disease: (unknown) Hx Family Congestive Heart Failure: (unknown) Hx Family Hypertension: (unknown) Hx Family Stroke: (unknown) Hx Family Diabetes: (unknown) Hx Family Seizures: (unknown) Hx Family Dementia: (unknown) Hx Family AIDS: (unknown) Hx Family COPD: (unknown) Hx Family Hepatitis: (unknown) Hx Family Psychiatric Problems: (unknown) Hx Family Tuberculosis: (unknown) ED Physical Exam - Physical Examination General/Constitutional: Awake, Well-developed, well-nourished, Alert, No distress, Non-toxic appearing, Ambulatory Other Gen/Cons comments:: nonverbal except for sounds. Head: Atraumatic Eyes: Lids, conjuctiva normal, PERRL, EOMI Other Skin comments:: dry oral mucosa. ENMT: External ears, nose nl, Nasal exam nl Neck: Nontender, Full ROM w/o pain, No JVD, No nuchal rigidity, No bruit, No mass, No stridor Respiratory: Nl effort/Exclusion, Clear to Auscultation, No Wheeze/Rhonchi/Rales Cardio Vascular: RRR, No murmur, gallop, rubs, NL S1 S2 GI: No tenderness/rebounding/guarding, No organomegaly, No hernia, Normal BS's, Nondistended, No mass/bruits, No McBurney tenderness : No CVA tenderness Extremities: No tenderness or effusion, Full ROM, normal strength in all extremities, No edema, Normal digits & nails Neuro/Psych: Normal sensory exam, Normal motor strength, Mood normal, Normal gait, No focal deficits Other Neuro/Psych comments:: blunted affect. Misc: Normal back, No paraspinal tenderness ED Labs/Radiology/EKG Results - Lab Results Results: Laboratory Tests 03/09/18 03/09/18 03/09/18 21:00 21:15 21:15 WBC 10.2 RBC 5.10 Hgb 14.7 Hct 43.5 MCV 85.3 MCH 28.9 MCHC Differential 33.9 RDW 12.3 Plt Count 337 MPV 7.9 Neutrophils % 55.6 Lymphocytes % 30.5 Monocytes % 8.0 Eosinophils % 3.1 Basophils % 2.8 H Sodium 134 L Potassium 2.9 L* Chloride 100 Carbon Dioxide 27.2 Anion Gap 9.7 BUN 13 Creatinine 0.8 Est GFR ( Amer) > 60.0 Est GFR (Non-Af Amer) > 60.0 BUN/Creatinine Ratio 16.3 Glucose 138 H Calcium 9.1 Phosphorus 3.2 Magnesium 2.2 Total Bilirubin 0.3 AST 12 L ALT 9 Alkaline Phosphatase 113 H Total Protein 6.7 Albumin 3.9 L Globulin 2.8 Albumin/Globulin Ratio 1.4 Urine Source CLEAN C Urine Color YELLOW Urine Clarity HAZY Urine pH 6.5 Ur Specific [place] 1.025 Urine Protein 100 H Urine Glucose (UA) NEGATIVE Urine Ketones NEGATIVE Urine Blood TRACE Urine Nitrate NEGATIVE Urine Bilirubin NEGATIVE Urine Urobilinogen 0.2 Ur Leukocyte Esterase NEGATIVE Urine RBC 2-5 H Urine WBC 0-2 Ur Epithelial Cells MANY Urine Bacteria FEW Urine Mucus MODERATE ED Assessment - Assessment General Assessment: resting comfortably. took oral potassium. Assessment/Comments:: received Ativan while monitored. [employer] pleased with repsonse and feels comfortable in taking him home. ED Septic Shock - . Is Septic Shock (SBP<90, OR Lactate>4 mmol\L) present?: No - <6hrs of presentation: Vital Signs: Vital Signs - 8 hr 03/09/18 20:40 Temp 98.1 F HR 105 RR 18 BP 141/95 O2 Sat % 95 ED Reassessment (Disposition) - Reassessment Reassessment Condition:: Improved - Diagnosis Diagnosis:: Agitation Hypokalemia (low potassium) Proteinuria - Aftercare/Follow up Instructions Medication Prescribed:: Potassium chloride 40 meq x 1 dose. - Patient Disposition Discharge/Transfer:: Residential/Boarding Care Condition at Disposition:: Stable, Improved
== END 2018-03-09 22:27 | disposition home or self-care (01) ==
LOC: ER 20:39
DX: R45.1 Restlessness and agitation (principal); E87.6 Hypokalemia; R80.9 Proteinuria, unspecified; I10 Essential (primary) hypertension; E07.9 Disorder of thyroid, unspecified
CPT/HCPCS: 99284; 96374; 96376; 36415; 84443; 85025; 81001; 83735; 84100; 80053; J2060 ×2; Z7502

== ENCOUNTER 2018-03-10 17:11 | Emergency (ER) | payer MEDICARE, MEDICAID ==
--- NOTE | 2018-03-10 18:15 | ED Physician Chart ---
ED Chief Complaint/HPI - Patient Information Date Seen:: 03/10/18 Time Seen:: 18:07 Chief Complaint:: agitation History of Present Illness:: 67 [place] here for geropsych eval severe intellectual disability self injuious behaviour here with sitter pt just makes sounds follows some commands Allergies:: Allergies Allergy/AdvReac Type Severity Reaction Status Date / Time No Known Allergies Allergy Verified 03/09/18 20:52 ED Review of Systems - Review of Systems General/Constitutional: No fever Skin: No skin lesions Eyes: No loss of vision ENT: No earache Neck: No neck pain Cardio Vascular: No chest pain Pulmonary: No SOB GI: No vomiting Psychiatric: Prior psych history Neurological: No syncope ED Past Medical History - Past Medical History Past Medical History: Thyroid disorder, Other (severe intellectual disability and injurious behaviour to self) Family Medical History - Family Member Mother History Unknown: Yes Ethnicity: Unknown Living Status: Unknown Hx Family Cancer: (unknown) Hx Family Coronary Artery Disease: (unknown) Hx Family Congestive Heart Failure: (unknown) Hx Family Hypertension: (unknown) Hx Family Stroke: (unknown) Hx Family Diabetes: (unknown) Hx Family Seizures: (unknown) Hx Family Dementia: (unknown) Hx Family AIDS: (unknown) Hx Family COPD: (unknown) Hx Family Hepatitis: (unknown) Hx Family Psychiatric Problems: (unknown) Hx Family Tuberculosis: (unknown) ED Assessment - Assessment General Assessment: agitation worsening ED Septic Shock - . Is Septic Shock (SBP<90, OR Lactate>4 mmol\L) present?: No ED Reassessment (Disposition) - Diagnosis Diagnosis:: severe agitation - Patient Disposition Discharge/Transfer:: Acute Care w/in this hosp Condition at Disposition:: Unchanged
[2018-03-10 18:40] LABS: % BASOPHILS 1.1 % (0.0-2.0); % EOSINOPHILS 3.1 % (0.0-5.0); % LYMPHOCYTES 25.8 % (20.0-50.0); % MONOCYTES 8.4 % (2.0-10.0); % NEUTROPHILS 61.6 % (40.0-80.0); BASOPHILE ABSOLUTE 0.1 Th/cumm (0-0.2); EOSINOPHILE ABSOLUTE 0.3 Th/cmm (0.1-0.4); HEMATOCRIT 42.4 % (41.0-60); HEMOGLOBIN 14.3 gm/dL (12-16); LYMPHOCYTE ABSOLUTE 2.4 Th/cmm (1.5-3.0); MEAN CELL VOLUME 85.9 fl (80-99); MEAN CORPUSCULAR HEMOGLOBIN 28.9 pg (27.0-31.0); MEAN CORPUSCULAR HGB CONC 33.6 pg (28.0-36.0); MEAN PLATELET VOLUME 8.2 fl; MONOCYTE ABSOLUTE 0.8 Th/cmm (0.3-1.0); NEUTROPHILE ABSOLUTE 5.7 Th/cmm (1.8-8.0); PLATELET COUNT 334 Th/cmm (150-400); RED BLOOD COUNT 4.94 Mil/cmm (3.80-5.80); RED CELL DISTRIBUTION WIDTH 12.6 % (11.5-20.0); WHITE BLOOD COUNT 9.3 Th/cmm (4.8-10.8)
[2018-03-10 18:58] LABS: ALB/GLOB RATIO 1.4 (1.0-1.8); ALBUMIN 3.9 gm/dL (4.2-5.5); ALKALINE PHOSPHATASE 109 U/L (34-104); ANION GAP 10.7 (7.0-16.0); BILIRUBIN,TOTAL 0.3 mg/dL (0.3-1.0); BUN - UREA NITROGEN 15 mg/dL (7-25); CALCIUM SERUM 9.3 mg/dL (8.6-10.3); CARBON DIOXIDE 25.5 mEq/L (21.0-31.0); CHLORIDE 106 mEq/L (98-107); CREATININE - SERUM 0.8 mg/dL (0.7-1.3); GFR AFRICAN-AMERICAN > 60.0 ml/min (>90); GFR NON AFRICAN-AMERICAN > 60.0 ml/min; GLUCOSE 112 mg/dL (70-105); POTASSIUM SERUM 3.2 mEq/L (3.5-5.1); SGOT 14 U/L (13-39); SGPT/ALT 10 U/L (7-52); SODIUM SERUM 139 mEq/L (136-145); TOTAL PROTEIN,SERUM 6.6 gm/dL (6.0-8.3)
[2018-03-10] MEDS ORDERED: Potassium Chloride 20 mEq ER Tab PO ONE ×2 (19:23→19:31)
--- NOTE | 2018-03-11 08:25 | Diagnostic Imaging Report ---
CHEST X-RAY: AP view INDICATION: Shortness of breath COMPARISON: None FINDINGS: Mild congestive changes are seen. No definite effusions. No focal consolidation identified. Calcified granulomas are seen along the right mediastinal region and probably the medial right lung base. Mild cardiomegaly is noted. The osseous structures are intact. IMPRESSION: Mild congestive changes. Developing interstitial infiltrates cannot be excluded. Mild cardiomegaly. Evidence of prior granulomatous disease.
== END 2018-03-10 20:00 | disposition home or self-care (01) ==
LOC: ER 17:11
DX: R45.1 Restlessness and agitation (principal); E87.6 Hypokalemia; E07.9 Disorder of thyroid, unspecified; R94.31 Abnormal electrocardiogram [ECG] [EKG]
CPT/HCPCS: 99285; 96372; 93005; 71045; 36415; 85025; 80053; 87040 ×2; J2060

== ENCOUNTER 2018-03-11 09:58 | Emergency (ER) | payer MEDICARE, MEDICAID ==
--- NOTE | 2018-03-11 10:15 | ED Physician Chart ---
ED Chief Complaint/HPI - Patient Information Date Seen:: 03/11/18 Time Seen:: 10:00 Chief Complaint:: Agitation History of Present Illness:: onset x 3 days of agitation and hostile/aggressive behavior; no report of trauma , H/As, S/T, neck pain, C/P, SOB, Abd. Pain, SIs, A/N/V/D/C, fever, chills, bleeding, or urinary s/s Allergies:: Allergies Allergy/AdvReac Type Severity Reaction Status Date / Time No Known Allergies Allergy Verified 03/09/18 20:52 Historian:: Patient, EMS Review:: Nurse's Note Reviewed, Old Chart Reviewed, EMS run form Reviewed ED Review of Systems - Review of Systems General/Constitutional: No fever, No chills, No weight loss, No weakness, No diaphoresis, No edema, No loss of appetite Skin: No skin lesions, No rash, No bruising Head: No headache, No light-headedness Eyes: No loss of vision, No pain, No diplopia ENT: No earache, No nasal drainage, No sore throat, No tinnitus Neck: No neck pain, No swelling, No thyromegaly, No stiffness, No mass noted Cardio Vascular: No chest pain, No palpitations, No PND, No orthopnea, No edema Pulmonary: No SOB, No cough, No sputum, No wheezing GI: No nausea, No vomiting, No diarrhea, No pain, No melena, No hematochezia, No constipation, No hematemesis G/U: No dysuria, No frequency, No hematuria, No nacturia Musculoskeletal: No bone or joint pain, No back pain, No muscle pain Endocrine: No polyuria, No polydipsia Psychiatric: Prior psych history, Depression, No depression, Anxiety, No suicidal ideation, No homicidal ideation, No auditory hallucination, No visual hallucination Hematopoietic: No bruising, No lymphadenopathy Allergic/Immuno: No urticaria, No angioedema Neurological: No syncope, No focal symptoms, No weakness, No paresthesia, No headache, No seizure, No dizziness, Confusion, No vertigo ED Past Medical History - Past Medical History Obtainable: Yes Past Medical History: HTN, Thyroid disorder, Dementia Family History: HTN Social History: Non Smoker, No Alcohol, No Drug Use, Single, Care Facility Surgical History: None Psychiatricy History: Depression, Bipolar, Dementia Medication: Reviewed Family Medical History - Family Member Mother History Unknown: Yes Ethnicity: Unknown Living Status: Unknown Hx Family Cancer: (unknown) Hx Family Coronary Artery Disease: (unknown) Hx Family Congestive Heart Failure: (unknown) Hx Family Hypertension: (unknown) Hx Family Stroke: (unknown) Hx Family Diabetes: (unknown) Hx Family Seizures: (unknown) Hx Family Dementia: (unknown) Hx Family AIDS: (unknown) Hx Family COPD: (unknown) Hx Family Hepatitis: (unknown) Hx Family Psychiatric Problems: (unknown) Hx Family Tuberculosis: (unknown) ED Physical Exam - Physical Examination General/Constitutional: Awake, Well-developed, well-nourished, Alert, No distress, GCS 15, Non-toxic appearing, Ambulatory Head: Atraumatic Eyes: Lids, conjuctiva normal, PERRL, EOMI Skin: Nl inspection, No rash, No skin lesions, No ecchymosis, Well hydrated, No lymphadenopathy ENMT: External ears, nose nl, TM canals nl, Nasal exam nl, Lips, teeth, gums nl , Oropharynx nl, Tonsils nl Neck: Nontender, Full ROM w/o pain, No JVD, No nuchal rigidity, No bruit, No mass, No stridor Respiratory: Nl effort/Exclusion, Clear to Auscultation, No Wheeze/Rhonchi/Rales Cardio Vascular: RRR, No murmur, gallop, rubs, NL S1 S2, Carotid/Femoral/Distal pulses equal bilaterally GI: No tenderness/rebounding/guarding, No organomegaly, No hernia, Normal BS's, Nondistended, No mass/bruits, No McBurney tenderness : No CVA tenderness Extremities: No tenderness or effusion, Full ROM, normal strength in all extremities, No edema, Normal digits & nails Neuro/Psych: Alert/oriented, DTR's symmetric, Normal sensory exam, Normal motor strength, Judgement/insight normal, Mood normal, Normal gait, No focal deficits Other Neuro/Psych comments:: + Psychomotor Agitation; no SIs; Mood/Affect: Labile Misc: Normal back, No paraspinal tenderness ED Labs/Radiology/EKG Results - Lab Results Comments:: Reviewed - EKG Interpretations EKG Time:: 10:17 Rate & Rhythm: 80; NSR Comments:: LBBB; non-specific st-t changes ED Septic Shock - . Is Septic Shock (SBP<90, OR Lactate>4 mmol\L) present?: No ED Reassessment (Disposition) - Reassessment Reassessment Condition:: Improved - Diagnosis Diagnosis:: Dx: Agitation; Psychosis; Dementia; Medical Clearance; Bipolar Disorder - Aftercare/Follow up Instructions Aftercare/Follow-Up Instructions:: Counseled pt regarding lab results/diagnosis & need follow up, Counseled pt & family regarding lab results/diagnosis & need follow up - Patient Disposition Discharge/Transfer:: Acute Care w/in this hosp Admitted to:: [facility] Condition at Disposition:: Stable, Improved
[2018-03-11 10:21] LABS: % BASOPHILS 1.1 % (0.0-2.0); % EOSINOPHILS 3.8 % (0.0-5.0); % LYMPHOCYTES 24.5 % (20.0-50.0); % MONOCYTES 5.6 % (2.0-10.0); BASOPHILE ABSOLUTE 0.1 Th/cumm (0-0.2); EOSINOPHILE ABSOLUTE 0.4 Th/cmm (0.1-0.4); HEMATOCRIT 42.4 % (41.0-60); HEMOGLOBIN 14.4 gm/dL (12-16); LYMPHOCYTE ABSOLUTE 2.5 Th/cmm (1.5-3.0); MEAN CORPUSCULAR HEMOGLOBIN 29.2 pg (27.0-31.0); MEAN CORPUSCULAR HGB CONC 33.9 pg (28.0-36.0); MONOCYTE ABSOLUTE 0.6 Th/cmm (0.3-1.0); NEUTROPHILE ABSOLUTE 6.4 Th/cmm (1.8-8.0); PLATELET COUNT 321 Th/cmm (150-400); RED BLOOD COUNT 4.93 Mil/cmm (3.80-5.80); RED CELL DISTRIBUTION WIDTH 12.6 % (11.5-20.0)
[2018-03-11 10:44] LABS: ACETAMINOPHEN < 10.0 ug/mL (10.0-30.0); ALB/GLOB RATIO 1.4 (1.0-1.8); ALBUMIN 3.8 gm/dL (4.2-5.5); ALKALINE PHOSPHATASE 106 U/L (34-104); ANION GAP 10.2 (7.0-16.0); BILIRUBIN,TOTAL 0.5 mg/dL (0.3-1.0); BUN - UREA NITROGEN 15 mg/dL (7-25); CALCIUM SERUM 9.2 mg/dL (8.6-10.3); CARBON DIOXIDE 25.5 mEq/L (21.0-31.0); CHLORIDE 105 mEq/L (98-107); CHOLESTEROL 152 mg/dL (<200); CREATININE - SERUM 0.7 mg/dL (0.7-1.3); GFR AFRICAN-AMERICAN > 60.0 ml/min (>90); GFR NON AFRICAN-AMERICAN > 60.0 ml/min; GLUCOSE 113 mg/dL (70-105); HDL -HIGH DENSITY LIPOPROTEIN 46 mg/dL (23-92); POTASSIUM SERUM 3.7 mEq/L (3.5-5.1); SALICYLATES (ASPIRIN) < 25.0 mg/L (30.0-100.0); SGOT 14 U/L (13-39); SGPT/ALT 11 U/L (7-52); SODIUM SERUM 137 mEq/L (136-145); TOTAL PROTEIN,SERUM 6.6 gm/dL (6.0-8.3); TRIGLYCERIDES 164 mg/dL (<150)
[2018-03-11 12:35] LABS: URINE SOURCE CLEAN C
[2018-03-11 12:39] LABS: URINE BILIRUBIN NEGATIVE (NEGATIVE); URINE BLOOD NEGATIVE (NEGATIVE); URINE GLUCOSE (UA) NEGATIVE (NEGATIVE); URINE KETONE NEGATIVE (NEGATIVE); URINE LEUKOCYTE ESTERASE NEGATIVE (NEGATIVE); URINE NITRATE NEGATIVE (NEGATIVE); URINE PROTEIN NEGATIVE (NEGATIVE); URINE UROBILINOGEN 0.2 E.U./dL (0.2 - 1.0)
[2018-03-11 13:04] LABS: URINE CLARITY CLEAR (CLEAR); URINE COLOR YELLOW; URINE MICROSCOPIC INDICATED? NO
[2018-03-11 13:16] LABS: AMPHETAMINE URINE NEGATIVE (NEGATIVE); BARBITURATES URINE NEGATIVE (NEGATIVE); BENZODIAZEPINES QUAL URINE NEGATIVE (NEGATIVE); CANNABINOID THC NEGATIVE (NEGATIVE); COCAINE METABOLITE QUAL URINE NEGATIVE (NEGATIVE); METHADONE URINE NEGATIVE (NEGATIVE); METHAMPHETAMINES QUAL URINE NEGATIVE (NEGATIVE); OPIATES (MORPHINE) QUAL. URINE NEGATIVE (NEGATIVE); PHENCYCLIDINE (PCP) URINE NEGATIVE (NEGATIVE); TRICYCLICS (TCA) QUAL. URINE POSITIVE (NEGATIVE)
== END 2018-03-11 15:59 | disposition home or self-care (01) ==
LOC: ER 09:58
DX: F32.9 Major depressive disorder, single episode, unspecified (principal); F29 Unspecified psychosis not due to a substance or known physiological condition; F03.90 Unspecified dementia, unspecified severity, without behavioral disturbance, psychotic disturbance, mood disturbance, and anxiety; R45.1 Restlessness and agitation; I10 Essential (primary) hypertension; E07.9 Disorder of thyroid, unspecified
CPT/HCPCS: 36415-UA; 80053-TC; 80061-TC; 80307; 80320-TC; 80329-TC; 81003-TC; 84443-TC; 84484-TC; 85025-TC; 86592-TC; 93005

== ENCOUNTER 2018-03-25 16:54 | Inpatient (IN) | payer MEDICARE, MEDICAID ==
--- NOTE | 2018-03-25 17:08 | ED Physician Chart ---
ED Chief Complaint/HPI - Patient Information Date Seen:: 03/25/18 Time Seen:: 16:50 Chief Complaint:: Agitation History of Present Illness:: onset x 3 days of agitation, and hostile, aggressive behavior; no report of LOC , ALOC, AMS, H/As, neck pain, trauma, C/P, SOB, Abd. pain, SIs, A/N/V/D/C, fever , chills, or urinary s/s; pt's last tetanus shot: < 5 years; UTD Allergies:: Allergies Allergy/AdvReac Type Severity Reaction Status Date / Time No Known Allergies Allergy Verified 03/25/18 17:00 Historian:: Patient, Friend Review:: Nurse's Note Reviewed <Zack Graham - Last Filed: 03/25/18 17:57> - Patient Information Allergies:: Allergies Allergy/AdvReac Type Severity Reaction Status Date / Time No Known Allergies Allergy Verified 03/25/18 17:00 Vitals:: Vital Signs - 8 hr 03/25/18 03/25/18 16:54 19:19 Temp 98.0 F 98.4 F HR 80 75 RR 18 18 BP 122/82 120/74 O2 Sat % 95 96 <Contreras George - Last Filed: 03/25/18 19:29> ED Review of Systems - Review of Systems General/Constitutional: No fever, No chills, No weight loss, No weakness, No diaphoresis, No edema, No loss of appetite Skin: No skin lesions, No rash, No bruising Head: No headache, No light-headedness Eyes: No loss of vision, No pain, No diplopia ENT: No earache, No nasal drainage, No sore throat, No tinnitus Neck: No neck pain, No swelling, No thyromegaly, No stiffness, No mass noted Cardio Vascular: No chest pain, No palpitations, No PND, No orthopnea, No edema Pulmonary: No SOB, No cough, No sputum, No wheezing GI: No nausea, No vomiting, No diarrhea, No pain, No melena, No hematochezia, No constipation, No hematemesis G/U: No dysuria, No frequency, No hematuria, No nacturia Musculoskeletal: No bone or joint pain, No back pain, No muscle pain Endocrine: No polyuria, No polydipsia Psychiatric: Prior psych history, Depression, Anxiety, No suicidal ideation, No homicidal ideation, No auditory hallucination, No visual hallucination Hematopoietic: No bruising, No lymphadenopathy Allergic/Immuno: No urticaria, No angioedema Neurological: No syncope, No focal symptoms, No weakness, No paresthesia, No headache, No seizure, No dizziness, Confusion, No vertigo <Zack Graham - Last Filed: 03/25/18 17:57> ED Past Medical History - Past Medical History Obtainable: Yes Past Medical History: HTN, Thyroid disorder, Dementia Family History: HTN Social History: Non Smoker, No Alcohol, No Drug Use, Single, Care Facility Surgical History: None Psychiatricy History: Depression, Bipolar, Dementia Medication: Reviewed <Zack Graham - Last Filed: 03/25/18 17:57> Family Medical History - Family Member Mother History Unknown: Yes Ethnicity: Unknown Living Status: Unknown Hx Family Cancer: (unknown) Hx Family Coronary Artery Disease: (unknown) Hx Family Congestive Heart Failure: (unknown) Hx Family Hypertension: (unknown) Hx Family Stroke: (unknown) Hx Family Diabetes: (unknown) Hx Family Seizures: (unknown) Hx Family Dementia: (unknown) Hx Family AIDS: (unknown) Hx Family COPD: (unknown) Hx Family Hepatitis: (unknown) Hx Family Psychiatric Problems: (unknown) Hx Family Tuberculosis: (unknown) <Zack Graham - Last Filed: 03/25/18 17:57> ED Physical Exam - Physical Examination General/Constitutional: Awake, Well-developed, well-nourished, Alert, No distress, GCS 15, Non-toxic appearing, Ambulatory Head: Atraumatic Eyes: Lids, conjuctiva normal, PERRL, EOMI Skin: Nl inspection, No rash, No skin lesions, No ecchymosis, Well hydrated, No lymphadenopathy ENMT: External ears, nose nl, TM canals nl, Nasal exam nl, Lips, teeth, gums nl , Oropharynx nl, Tonsils nl Neck: Nontender, Full ROM w/o pain, No JVD, No nuchal rigidity, No bruit, No mass, No stridor Respiratory: Nl effort/Exclusion, Clear to Auscultation, No Wheeze/Rhonchi/Rales Cardio Vascular: RRR, No murmur, gallop, rubs, NL S1 S2, Carotid/Femoral/Distal pulses equal bilaterally GI: No tenderness/rebounding/guarding, No organomegaly, No hernia, Normal BS's, Nondistended, No mass/bruits, No McBurney tenderness : No CVA tenderness Extremities: No tenderness or effusion, Full ROM, normal strength in all extremities, No edema, Normal digits & nails Neuro/Psych: Alert/oriented, DTR's symmetric, Normal sensory exam, Normal motor strength, Judgement/insight normal, Mood normal, Normal gait, No focal deficits Other Neuro/Psych comments:: + psychomotor Agitation; no SIs; mood/Affect: Labile Misc: Normal back, No paraspinal tenderness <Zack Graahm - Last Filed: 03/25/18 17:57> ED Labs/Radiology/EKG Results - Lab Results Comments:: Reviewed - EKG Interpretations EKG Time:: 17:03 Rate & Rhythm: 73; NSR Comments:: LBBB; non-specific st-t changes <Zack Graham - Last Filed: 03/25/18 17:57> - Lab Results Results: Laboratory Tests 03/25/18 03/25/18 03/25/18 17:10 17:10 17:10 WBC 7.7 RBC 4.60 Hgb 13.4 Hct 39.7 L MCV 86.3 MCH 29.2 MCHC Differential 33.8 RDW 12.9 Plt Count 289 MPV 7.8 Neutrophils % 60.9 Lymphocytes % 27.0 Monocytes % 8.3 Eosinophils % 3.1 Basophils % 0.7 Sodium 137 Potassium 3.5 Chloride 108 H Carbon Dioxide 22.2 Anion Gap 10.3 BUN 14 Creatinine 0.8 Est GFR ( Amer) > 60.0 Est GFR (Non-Af Amer) > 60.0 BUN/Creatinine Ratio 17.5 Glucose 104 Calcium 9.0 Total Bilirubin 0.4 AST 16 ALT 10 Alkaline Phosphatase 100 Troponin I 0.01 Total Protein 6.4 Albumin 3.9 L Globulin 2.5 Albumin/Globulin Ratio 1.6 Triglycerides 76 Cholesterol 131 LDL Cholesterol Direct 72 L HDL Cholesterol 43 Urine Source Urine Color Urine Clarity Urine pH Ur Specific [place] Urine Protein Urine Glucose (UA) Urine Ketones Urine Blood Urine Nitrate Urine Bilirubin Urine Urobilinogen Ur Leukocyte Esterase Urine RBC Urine WBC Ur Epithelial Cells Urine Bacteria Urine Mucus Salicylates < 25.0 L Acetaminophen < 10.0 L Ethyl Alcohol < 10 03/25/18 18:50 WBC RBC Hgb Hct MCV MCH MCHC Differential RDW Plt Count MPV Neutrophils % Lymphocytes % Monocytes % Eosinophils % Basophils % Sodium Potassium Chloride Carbon Dioxide Anion Gap BUN Creatinine Est GFR ( Amer) Est GFR (Non-Af Amer) BUN/Creatinine Ratio Glucose Calcium Total Bilirubin AST ALT Alkaline Phosphatase Troponin I Total Protein Albumin Globulin Albumin/Globulin Ratio Triglycerides Cholesterol LDL Cholesterol Direct HDL Cholesterol Urine Source CLEAN C Urine Color YELLOW Urine Clarity CLEAR Urine pH 6.0 Ur Specific [place] <= 1.005 Urine Protein NEGATIVE Urine Glucose (UA) NEGATIVE Urine Ketones NEGATIVE Urine Blood NEGATIVE Urine Nitrate NEGATIVE Urine Bilirubin NEGATIVE Urine Urobilinogen 0.2 Ur Leukocyte Esterase NEGATIVE Urine RBC 0-2 H Urine WBC 2-5 Ur Epithelial Cells FEW Urine Bacteria 1+ H Urine Mucus FEW Salicylates Acetaminophen Ethyl Alcohol <Contreras George - Last Filed: 03/25/18 19:29> ED Septic Shock - . Is Septic Shock (SBP<90, OR Lactate>4 mmol\L) present?: No <Zack Graham - Last Filed: 03/25/18 17:57> - <6hrs of presentation: Vital Signs: Vital Signs - 8 hr 03/25/18 03/25/18 16:54 19:19 Temp 98.0 F 98.4 F HR 80 75 RR 18 18 BP 122/82 120/74 O2 Sat % 95 96 <Contreras George - Last Filed: 03/25/18 19:29> ED Reassessment (Disposition) - Reassessment Reassessment Condition:: Improved - Diagnosis Diagnosis:: Dx: Agitation; Psychosis; Dementia; Medical Clearance; Bipolar Disorder - Aftercare/Follow up Instructions Aftercare/Follow-Up Instructions:: Counseled pt regarding lab results/diagnosis & need follow up, Counseled pt & family regarding lab results/diagnosis & need follow up <Zack Graham - Last Filed: 03/25/18 17:57> - Aftercare/Follow up Instructions Notes:: pt is medically cleared pt placed on hold and admitted geropsych - Patient Disposition Discharge/Transfer:: Acute Care w/in this hosp Condition at Disposition:: Stable <Contreras George - Last Filed: 03/25/18 19:29>
[2018-03-25 17:19] LABS: % BASOPHILS 0.7 % (0.0-2.0); % EOSINOPHILS 3.1 % (0.0-5.0); % MONOCYTES 8.3 % (2.0-10.0); % NEUTROPHILS 60.9 % (40.0-80.0); BASOPHILE ABSOLUTE 0.1 Th/cumm (0-0.2); EOSINOPHILE ABSOLUTE 0.2 Th/cmm (0.1-0.4); HEMATOCRIT 39.7 % (41.0-60); HEMOGLOBIN 13.4 gm/dL (12-16); LYMPHOCYTE ABSOLUTE 2.1 Th/cmm (1.5-3.0); MEAN CELL VOLUME 86.3 fl (80-99); MEAN CORPUSCULAR HEMOGLOBIN 29.2 pg (27.0-31.0); MEAN CORPUSCULAR HGB CONC 33.8 pg (28.0-36.0); MEAN PLATELET VOLUME 7.8 fl; MONOCYTE ABSOLUTE 0.6 Th/cmm (0.3-1.0); NEUTROPHILE ABSOLUTE 4.7 Th/cmm (1.8-8.0); PLATELET COUNT 289 Th/cmm (150-400); RED CELL DISTRIBUTION WIDTH 12.9 % (11.5-20.0); WHITE BLOOD COUNT 7.7 Th/cmm (4.8-10.8)
[2018-03-25 17:36] LABS: ALB/GLOB RATIO 1.6 (1.0-1.8); ALBUMIN 3.9 gm/dL (4.2-5.5); ALKALINE PHOSPHATASE 100 U/L (34-104); ANION GAP 10.3 (7.0-16.0); BILIRUBIN,TOTAL 0.4 mg/dL (0.3-1.0); BUN - UREA NITROGEN 14 mg/dL (7-25); CARBON DIOXIDE 22.2 mEq/L (21.0-31.0); CHLORIDE 108 mEq/L (98-107); CHOLESTEROL 131 mg/dL (<200); CREATININE - SERUM 0.8 mg/dL (0.7-1.3); GFR AFRICAN-AMERICAN > 60.0 ml/min (>90); GFR NON AFRICAN-AMERICAN > 60.0 ml/min; GLUCOSE 104 mg/dL (70-105); HDL -HIGH DENSITY LIPOPROTEIN 43 mg/dL (23-92); POTASSIUM SERUM 3.5 mEq/L (3.5-5.1); SALICYLATES (ASPIRIN) < 25.0 mg/L (30.0-100.0); SGOT 16 U/L (13-39); SGPT/ALT 10 U/L (7-52); SODIUM SERUM 137 mEq/L (136-145); TOTAL PROTEIN,SERUM 6.4 gm/dL (6.0-8.3); TRIGLYCERIDES 76 mg/dL (<150)
[2018-03-25 17:37] LABS: ACETAMINOPHEN < 10.0 ug/mL (10.0-30.0)
[2018-03-25 19:13] LABS: URINE BILIRUBIN NEGATIVE (NEGATIVE); URINE BLOOD NEGATIVE (NEGATIVE); URINE CLARITY CLEAR (CLEAR); URINE COLOR YELLOW; URINE GLUCOSE (UA) NEGATIVE (NEGATIVE); URINE KETONE NEGATIVE (NEGATIVE); URINE LEUKOCYTE ESTERASE NEGATIVE (NEGATIVE); URINE NITRATE NEGATIVE (NEGATIVE); URINE PROTEIN NEGATIVE (NEGATIVE); URINE SOURCE CLEAN C; URINE UROBILINOGEN 0.2 E.U./dL (0.2 - 1.0)
[2018-03-25 19:14] LABS: URINE MICROSCOPIC INDICATED? YES
[2018-03-25 19:16] LABS: URINE BACTERIA 1+ /hpf (NONE SEEN); URINE EPITHELIAL CELLS FEW /lpf (FEW); URINE RBC 0-2 /hpf (0-5)
[2018-03-25 19:31] LABS: AMPHETAMINE URINE NEGATIVE (NEGATIVE); BARBITURATES URINE NEGATIVE (NEGATIVE); BENZODIAZEPINES QUAL URINE NEGATIVE (NEGATIVE); CANNABINOID THC NEGATIVE (NEGATIVE); COCAINE METABOLITE QUAL URINE NEGATIVE (NEGATIVE); METHADONE URINE NEGATIVE (NEGATIVE); METHAMPHETAMINES QUAL URINE NEGATIVE (NEGATIVE); OPIATES (MORPHINE) QUAL. URINE NEGATIVE (NEGATIVE); PHENCYCLIDINE (PCP) URINE NEGATIVE (NEGATIVE); TRICYCLICS (TCA) QUAL. URINE POSITIVE (NEGATIVE)
[2018-03-25] MEDS ORDERED: Maalox 30 mL Cup PO PRN (20:10)
[2018-03-25] MEDS ORDERED: Magnesium Hydroxide (MOM) 30 mL UDC PO PRN (20:10)
[2018-03-25 21:09] VITALS: BP 115/68
[2018-03-26 06:38] LABS: CHOLESTEROL 136 mg/dL (<200); HDL -HIGH DENSITY LIPOPROTEIN 45 mg/dL (23-92); TRIGLYCERIDES 80 mg/dL (<150)
[2018-03-26] MEDS: Levothyroxine 0.075 Mg Tab PO SCH (06:51)
[2018-03-26] MEDS: Ferrous Sulfate 325 MG TAB PO SCH ×2 (06:51→17:12)
[2018-03-26] MEDS ORDERED: Albuterol Nebulizer 2.5mg/3mL HHN PRN (07:00)
[2018-03-26] MEDS ORDERED: Benztropine 1 MG TAB PO SCH (09:00)
[2018-03-26] MEDS: Multivitamin Tab PO SCH (09:30)
--- NOTE | 2018-03-26 09:55 | History & Physical ---
ADMIT DATE: 03/26/2018 PATIENT IDENTIFICATION: A 67-year-old male. HISTORY SOURCE: Reviewing the chart, talking to staff. CHIEF COMPLAINT: Unable to obtain. HISTORY OF PRESENT ILLNESS: A 67-year-old male who resides at [facility] and assisted living facility for developmentally disabled, brought in to the Emergency Room at [facility] after patient was noted to have increasing agitation, hitting himself and try to hit his head to the wall and the patient was evaluated in the Emergency Room, the patient was advised to be admitted. The patient does not provide any meaningful history due to developmental disability with the dementia. PAST MEDICAL HISTORY: Remarkable for: 1. Developmental disability. 2. Dementia. 3. Hypothyroidism. 4. Hypertension. 5. Psychotic disorder. 6. DJD. 7. Allergic rhinosinusitis. MEDICATIONS AT HOME: Taking Norvasc, Cogentin, Elisha, Flonase, Motrin, Synthroid, Norvasc, Diovan, Seroquel, Ambien, multivitamin, milk of magnesia. ALLERGIES: The patient is not allergic to medications. SOCIAL HISTORY: The patient resides in an assisted living facility. No history of smoking cigarette, alcohol, or drug use. FAMILY MEDICAL HISTORY: Unknown. REVIEW OF SYSTEMS: Unable to get meaningful history from the patient. PHYSICAL EXAMINATION: GENERAL: A 67-year-old, alert, awake, lying in the bed, unable to give any history. VITAL SIGNS: Temperature 97.6, pulse is 84, respiratory rate is 18, blood pressure 144/60. HEENT: Normocephalic, atraumatic. Extraocular muscles intact. Tongue was pink and coated. No oral lesions noted. Multiple absent teeth noted. NECK: Supple. No JVD, no hepatojugular reflux. No lymphadenopathy, thyromegaly or carotid bruit. HEART: Both heart sounds are regular. No S3, no S4. CHEST: Lung equal in expansion, no expiratory wheezing. ABDOMEN: Soft. No guarding, no rigidity. Bowel sounds present. No palpable mass. EXTREMITIES: No edema, no cyanosis. Peripheral pulses are +1. No calf tenderness noted. Diffuse osteoarthritic changes involving upper and lower extremity of major and minor joint noted. NEUROLOGIC: Alert, awake, but not following any simple commands. AVAILABLE DIAGNOSTIC DATA: White count of 7.7, hemoglobin 13.4, platelet count of 289, BUN and creatinine 14 and 0.8, glucose of 104, potassium 3.5, albumin 3.9. Cholesterol panel remarkable for cholesterol 131, LDL of 72, HDL of 43, triglyceride of 76. Urinalysis is negative. Urine drug screen is positive for tricyclic; otherwise unremarkable. EKG has no ST-T changes representing acute ischemia. CLINICAL IMPRESSION: 1. Psychotic disorder exacerbation. 2. Hypertension. 3. Hypothyroidism. 4. Degenerative joint disease. 5. Developmental disability. 6. Dementia. 7. High risk for fall. PLAN: 1. Psychotic evaluation and management deferred to psychiatrist. 2. Resume antihypertensive medicine. 3. Hypertension, which include Norvasc and Cozaar. 4. Synthroid for history of hypothyroidism. 5. Continue Flonase and Elisha for allergic rhinosinusitis. 6. Symptomatic therapy. 7. Discontinue iron therapy considering there is no evidence of any anemia. 8. P.r.n. inhalation therapy for asthma. 9. Fall precautions. 10. General nursing care. 11. Psychotic evaluation and management deferred to psychiatrist. 12. The patient will be followed by us during the stay in the hospital. I sincerely thank you, Dr. Stan Feliciano for giving me the opportunity to participate in patient of yours. JOB# [id number]
[2018-03-26] MEDS: Fluticasone Propionate Nasal 1 SPR SPR NS SCH (10:55)
[2018-03-26] MEDS: Fexofenadine 60 mg Tab PO SCH ×2 (10:55→18:04)
[2018-03-27] MEDS: Levothyroxine 0.075 Mg Tab PO SCH (06:40)
[2018-03-27] MEDS: Ferrous Sulfate 325 MG TAB PO SCH ×2 (06:40→17:28)
[2018-03-27] MEDS: Multivitamin Tab PO SCH (09:16)
[2018-03-27] MEDS: Fexofenadine 60 mg Tab PO SCH ×2 (09:16→18:00)
[2018-03-27] MEDS: Fluticasone Propionate Nasal 1 SPR SPR NS SCH (09:16)
--- NOTE | 2018-03-27 19:23 | Psychiatric Evaluation ---
DATE OF SERVICE: 03/27/2018 SUBJECTIVE: The patient seen and examined. The patient does not provide a meaningful history. The patient is lying in the bed with intermittent aggressive behavior. PHYSICAL EXAMINATION: VITAL SIGNS: Temperature 98, pulse is 74, respiratory rate 18, blood pressure 130/80. HEENT: No facial asymmetry. NECK: Supple, no JVD. HEART: Regular. LUNGS: Clear. ABDOMEN: Soft. EXTREMITIES: No edema. CLINICAL IMPRESSION: Developmental disability. DIAGNOSTIC IMPRESSION: 1. Psychotic disorder. 2. Dementia. 3. Hypothyroidism. 4. Hypertension. 5. Degenerative disk disease. 6. History of asthma and allergic rhinosinusitis. PLAN: 1. Psychotic evaluation. Management deferred to Psychiatry. 2. Synthroid. 3. Antihypertensive medicine. 4. Monitor blood pressure. 5. Nutritional support. 6. General nursing care. 7. Care plan reviewed and discussed with staff. JOB# [id number]
[2018-03-28] MEDS: Levothyroxine 0.075 Mg Tab PO SCH (06:41)
[2018-03-28] MEDS: Ferrous Sulfate 325 MG TAB PO SCH (06:41)
[2018-03-28] MEDS: Multivitamin Tab PO SCH (08:39)
[2018-03-28] MEDS: Fluticasone Propionate Nasal 1 SPR SPR NS SCH (08:40)
[2018-03-28] MEDS: Fexofenadine 60 mg Tab PO SCH (08:46)
[2018-03-29] MEDS: Ferrous Sulfate 325 MG TAB PO SCH ×2 (06:52→17:05)
[2018-03-29] MEDS: Levothyroxine 0.075 Mg Tab PO SCH (06:54)
[2018-03-29] MEDS: Fexofenadine 60 mg Tab PO SCH ×2 (09:55→17:05)
[2018-03-29] MEDS: Multivitamin Tab PO SCH (09:55)
[2018-03-29] MEDS: Fluticasone Propionate Nasal 1 SPR SPR NS SCH (09:57)
--- NOTE | 2018-03-29 17:05 | Psychiatric Evaluation ---
DATE OF SERVICE: 03/29/2018 AGE: 67. SEX: Male. PHYSICIAN: Dr. Feliciano. CHIEF COMPLAINT: Severe agitation and aggressive behavior. HISTORY OF PRESENT ILLNESS: The patient is a 67-year-old male who is well known to me for treatment in [facility]. The tableau administrator of a [facility] called me telling me that the patient has been out of control and I evaluated the patient one day prior to his admission. The patient was hitting himself in the head and face and I adjusted the patient's medications, but the patient continued to be aggressive and the next day, the patient was transferred to the hospital. The patient is still severely aggressive and agitated. He has been having 3 days of continuous hitting himself on the top of his head as well as on his face. Also, has not been able to follow any directions and has been in angry and in irritable mood. Also, the patient has been rambling and has not been able to fix first himself or to bring any coherent conversation. He is developmentally disabled and is living in a [facility] and care for developmentally disabled. PAST PSYCHIATRIC HISTORY: The patient has history of psychosis and agitation. PAST MEDICAL HISTORY: The patient has history of hypertension as well as hypothyroidism. FAMILY HISTORY: The patient has no psychiatric problems in the family but family history of hypertension. SOCIAL HISTORY: The patient lives in [facility] and care in the [facility]. No known alcohol or drug use. The patient belongs to a [facility]. He does not smoke cigarettes. Single, never and no children. ALLERGIES: No known allergies. MENTAL STATUS EXAMINATION: The patient appears older than his stated age. Confused. Agitated. Irritable mood. Mumbles. The patient is unable to carry on any coherent conversation and his thought processes are word salad. The patient is actively hallucinating and actively responding to a stimuli, but did not answer questions regarding auditory or visual hallucinations or delusions or regarding suicide or homicide. The patient is alert, but confused and disoriented to time, place, person, and situation. Unable to assess his memory because the patient has been rambling and unable to follow directions. Poor insight and poor judgment. He seems to be of [id number] mental retardation based on his verbal ability. ASSESSMENT: PRIMARY DIAGNOSIS: Unspecified psychosis. SECONDARY DIAGNOSIS: Mental retardation, moderate to severe. MEDICAL DIAGNOSES: 1. Hypothyroidism. 2. Hypertension. TREATMENT PLAN: Continue to monitor his behavior and condition closely. Also, we will adjust the dose Seroquel and the dose of benztropine and we will stop the ____. ESTIMATED LENGTH OF STAY: 5-7 days. THE PATIENT'S STRENGTHS AND WEAKNESSES: The patient's strengths are that he has system support administrator in [facility]. Weaknesses is his poor impulse control. AFTER DISCHARGE PLAN: The patient will return to [facility] with outpatient treatment and followup. CRITERIA FOR DISCHARGE: The patient will not be agitated or psychotic and will stabilize psychotropic medications and have better impulse control. JOB# [id number]
--- NOTE | 2018-03-29 21:31 | Progress Notes ---
DATE: 03/27/2018 Chart reviewed and the patient interviewed. Also, discussed the patient's condition with the staff and reviewed records and labs. The patient is still agitated and he is still trying to hit the top of his head with his hands. He also is still hitting his face. The patient also is still irritable and is still agitated. He also still has difficulty following any of staff directions and keeps mumbling and talking to self. Otherwise, the patient is compliant with taking medications with no side effects of medications. ASSESSMENT: The patient is still agitated and psychotic. TREATMENT PLAN: Continue to monitor his behavior and his condition closely. Also, we will decrease Seroquel to 12.5 mg in the morning and 25 mg at bedtime and we will increase Klonopin to 2 mg twice a day and will continue to follow up his condition and his behavior closely. JOB# [id number]
--- NOTE | 2018-03-29 21:58 | Progress Notes ---
DATE: 03/28/2018 SUBJECTIVE: Chart reviewed and the patient interviewed. Also discussed the patient's condition with the staff and reviewed records and labs. The patient continued to be extremely agitated and rocking on the chair back and forth. The patient also still hitting the top of his head and hitting his face. He is also confused and restless. Otherwise, the patient is slightly easier to redirect him. The patient denies any side effects of medications. ASSESSMENT: The patient is still agitated and psychotic. TREATMENT PLAN: Continue to monitor behavior and continue current psychotropic medications and adjust psychotropic medications. Also, continue to work on behavioral modification. JOB# [id number]
--- NOTE | 2018-03-29 22:02 | Progress Notes ---
DATE: SUBJECTIVE: Chart reviewed and the patient interviewed. Also discussed the patient's condition with the staff and reviewed records and labs. The patient is still easily agitated and hitting himself on top of his head and on his face. The patient also is restless and is still confused and is still in angry mood. The patient also is still rocking back and forth on his chair and hitting the chair with his chest. Otherwise, the patient is compliant with taking medications with no side effects of medications. ASSESSMENT: The patient is still agitated and is still psychotic. TREATMENT PLAN: Continue adjusting psychotropic medications and working on behavioral modification and continue to follow up. JOB# [id number]
--- NOTE | 2018-03-30 09:47 | Progress Notes ---
DATE: 03/30/2018 SUBJECTIVE: The patient seen and examined. The patient is sitting in the chair. The patient cannot provide meaningful history. Discussed with nursing staff other concerns and treatment plan. PHYSICAL EXAMINATION: VITAL SIGNS: Temperature 98.3, pulse 64, respiratory rate 18, blood pressure 113/65. HEENT: No facial asymmetry. NECK: Supple, no JVD. HEART: Regular. CHEST: Lung equal in expansion, no expiratory wheezing. ABDOMEN: Soft. EXTREMITIES: No edema. CLINICAL IMPRESSION: 1. Hypertension. 2. Allergic rhinosinusitis. 3. Hypothyroidism. 4. Degenerative joint disease. 5. Psychotic disorder. 6. Developmental disability. 7. Dementia. PLAN: 1. Psychotropic medications. 2. Antihypertensive medicine. 3. Synthroid. 4. Fall precaution. 5. Nutritional support. 6. General nursing care. 7. Medication ordered. 8. Care plan reviewed and discussed with staff. JOB# [id number]
[2018-03-30] MEDS: Fexofenadine 60 mg Tab PO SCH ×2 (10:07→17:13)
[2018-03-30] MEDS: Multivitamin Tab PO SCH (10:10)
[2018-03-30] MEDS: Fluticasone Propionate Nasal 1 SPR SPR NS SCH (10:17)
[2018-03-30] MEDS: Ferrous Sulfate 325 MG TAB PO SCH (17:12)
--- NOTE | 2018-03-31 02:01 | Progress Notes ---
DATE: 03/30/2018 A 67-year-old male well known to Dr. Feliciano coming from [facility]. The patient with out of control behaviors, hitting himself in the head, face. On [id number], the patient is still hitting himself, hitting his head on the mattress, swinging his arms, ongoing symptoms, not talking to me. He slept about 10 hours last night, not lashing out at others, but making efforts to hurt himself, disoriented, confused, slapping his hand, slapping his face, incoherent, anxious. Behaviors remain highly unpredictable. ASSESSMENT: The patient remains symptomatic, restless, self-harming behaviors. PLAN: We will continue to monitor, continue to adjust dosages of medications, titrate dosages of Seroquel over the next few days. [facility]# [id number]
[2018-03-31] MEDS: Ferrous Sulfate 325 MG TAB PO SCH ×2 (06:37→16:42)
[2018-03-31] MEDS: Levothyroxine 0.075 Mg Tab PO SCH ×2 (06:37→06:45)
[2018-03-31] MEDS: Multivitamin Tab PO SCH (09:19)
[2018-03-31] MEDS: Fexofenadine 60 mg Tab PO SCH ×2 (09:38→16:42)
[2018-03-31] MEDS: Fluticasone Propionate Nasal 1 SPR SPR NS SCH (09:38)
--- NOTE | 2018-03-31 21:28 | Progress Notes ---
DATE: 03/31/2018 SUBJECTIVE: The patient coming in from [facility]. The patient with out of control behaviors, hitting himself in the face, aggressive behaviors, slapping his chest right now, yelling in a Gayathri chair, not very coherent, history of psychosis, agitation, and unable to really assess at this time, nonsensical, just mumbling, moaning, yelling. ASSESSMENT: The patient is confused with ongoing symptoms indicative of anger outbursts, behavioral outbursts, sometimes hitting himself, banging himself on the chest, and slapping himself in the face, sometimes trying to get up from a Gayathri chair. MEDICATIONS: Reviewed. PLAN: We will continue to monitor, adjust and titrate medications. I will increase his Seroquel, adjust dosing to 37.5 mg. Given his ongoing symptoms, there are ongoing safety concerns. He still attempting to hurt himself, hit himself. JOB# [id number]
[2018-04-01] MEDS: Ferrous Sulfate 325 MG TAB PO SCH ×2 (07:36→16:50)
[2018-04-01] MEDS: Levothyroxine 0.075 Mg Tab PO SCH (07:37)
[2018-04-01] MEDS: Multivitamin Tab PO SCH (09:20)
[2018-04-01] MEDS: Fexofenadine 60 mg Tab PO SCH ×2 (09:20→16:51)
[2018-04-01] MEDS: Fluticasone Propionate Nasal 1 SPR SPR NS SCH (13:22)
--- NOTE | 2018-04-01 18:25 | Progress Notes ---
DATE: IDENTIFICATION: A 67-year-old male. SUBJECTIVE: The patient seen and examined. The patient is sitting in the chair, much calmer than the last 2 days. The patient remained afebrile. PHYSICAL EXAMINATION: GENERAL: The patient is eating 100%. Behavior is little better. VITAL SIGNS: Temperature 97.9, pulse is 53, respiratory rate 18, and blood pressure 113/53. HEENT: No facial asymmetry. Multiple absent teeth noted with poor oral hygiene. NECK: Supple, no JVD. HEART: Regular. CHEST AND LUNGS: Equal in expansion, no expiratory wheezing. ABDOMEN: Soft. No guarding or rigidity. Bowel sounds present. No palpable mass. EXTREMITIES: No edema. NEUROLOGIC: Alert, awake, follows a little bit, but not following any commands. AVAILABLE DIAGNOSTIC DATA: None for my review. CLINICAL IMPRESSION: 1. Psychiatric disorder exacerbation. 2. Hypertension. 3. History of asthma. 4. Allergic rhinosinusitis. 5. Developmental disability. 6. Dementia. 7. Degenerative joint disease. 8. High risk for fall. PLAN: 1. Continue antihypertensive medicine. 2. Low sodium diet. 3. Synthroid. 4. Fall precautions. 5. General nursing care. 6. Nutritional support. 7. Follow, psychotic evaluation and management deferred to psychiatrist. 8. Care plan reviewed and discussed with staff. JOB# [id number]
--- NOTE | 2018-04-01 22:12 | Progress Notes ---
DATE: 04/01/2018 SUBJECTIVE: Chart reviewed and the patient interviewed. Also, discussed the patient's condition with the staff and reviewed records and labs. The patient still has episodes of agitation and irritability, but seems to be slightly less. He is still trying to hit the top of his head with his fist and also hitting his face, but also seems to be less. He is still confused and unable to follow any directions. At the same time, he is compliant with taking medications with no side effects of medications. ASSESSMENT: The patient is still confused and is still agitated, but slightly less. TREATMENT PLAN: Continue monitoring behavior. Also, increase Seroquel to 12.5 mg twice a day and 50 mg at bedtime and continue Klonopin 2 mg twice a day and will continue to follow up. JOB# [id number]
[2018-04-02] MEDS: Ferrous Sulfate 325 MG TAB PO SCH (06:43)
[2018-04-02] MEDS: Levothyroxine 0.075 Mg Tab PO SCH (06:43)
[2018-04-02] MEDS: Multivitamin Tab PO SCH (09:32)
[2018-04-02] MEDS: Fexofenadine 60 mg Tab PO SCH ×3 (09:33→17:43)
[2018-04-02] MEDS: Fluticasone Propionate Nasal 1 SPR SPR NS SCH (09:51)
--- NOTE | 2018-04-02 10:09 | Progress Notes ---
DATE: SUBJECTIVE: Chart reviewed and the patient interviewed. Also discussed the patient's condition with the staff and reviewed records and labs. The patient still needs redirections and is still slightly confused. The patient also still has difficulty following directions, but less than before. The patient also is still crying at times to hit top of his head, but also that seems to be less. Otherwise, the patient is cooperative and compliant with taking his medications with no side effects of medications. PLAN: Continue current medications and monitor behavior closely and we will continue to follow up. JOB# [id number]
--- NOTE | 2018-04-02 16:06 | Progress Notes ---
DATE: 04/02/2018 SUBJECTIVE: The patient seen and examined. The patient is still agitated, confused, but less aggressive. The patient has been followed by psychiatrist and his psychotropic medications have been adjusted. Discussed with nursing staff. No new event has been noted. PHYSICAL EXAMINATION: VITAL SIGNS: Temperature 97.7, pulse was reported 44, blood pressure 113/49, and respiratory rate is 18. HEENT: No facial asymmetry. Multiple absent teeth with poor dentition noted. NECK: Supple, no JVD. HEART: Regular. CHEST AND LUNGS: Equal in expansion, no expiratory wheezing. ABDOMEN: Soft. No guarding, no rigidity. Bowel sounds are present. No palpable mass. EXTREMITIES: No edema. CLINICAL IMPRESSION: 1. Bradycardia. 2. Hypertension. 3. Allergic rhinosinusitis. 4. Hypothyroidism. 5. Degenerative joint disease. 6. Psychotic disorder. 7. Developmental disability. 8. Dementia. PLAN: 1. Get a baseline EKG. 2. Antihypertensive medicine. 3. Fall precautions. 4. Nutritional support. 5. General nursing care. 6. Continue current medication as previously prescribed. 7. Psychiatric evaluation and management deferred to psychiatrist. 8. Care plan reviewed and discussed with staff. JOB# [id number]
[2018-04-03] MEDS: Levothyroxine 0.075 Mg Tab PO SCH (06:36)
[2018-04-03] MEDS: Ferrous Sulfate 325 MG TAB PO SCH ×2 (06:36→17:10)
[2018-04-03] MEDS: Fexofenadine 60 mg Tab PO SCH ×2 (09:19→17:09)
[2018-04-03] MEDS: Multivitamin Tab PO SCH (09:20)
[2018-04-03] MEDS: Fluticasone Propionate Nasal 1 SPR SPR NS SCH (09:22)
--- NOTE | 2018-04-03 21:20 | Progress Notes ---
DATE: SUBJECTIVE: The patient seen and examined. The patient is lying in the bed. No new event. PHYSICAL EXAMINATION: VITAL SIGNS: Temperature 98, pulse is 68, respiratory rate 18, and blood pressure 104/67. HEENT: No facial asymmetry. Poor dentition noted. NECK: Supple, no JVD. HEART: Regular. CHEST: Lung equal in expansion, no expiratory wheezing. ABDOMEN: Soft. EXTREMITIES: No edema. NEUROLOGICAL: Alert but not following any commands. CLINICAL IMPRESSION: 1. Intellectual disability. 2. Hypertension. 3. Asthma. 4. Allergic rhinosinusitis. 5. Degenerative joint disease. 6. Hypothyroidism. 7. Psychotic disorder. PLAN: 1. Psychotic evaluation and management deferred to psychiatrist. 2. Antihypertensive medicine. 3. Synthroid. 4. General nursing care. 5. Elisha. 6. P.r.n. inhalation therapy. 7. Fall precaution. 8. Nutritional support. 9. Symptoms management. 10. Medication management. 11. Care plan reviewed and discussed with staff. JOB# [id number]
--- NOTE | 2018-04-03 22:30 | Progress Notes ---
DATE: 04/03/2018 PSYCHIATRIC PROGRESS NOTE SUBJECTIVE: Chart reviewed and the patient interviewed. Also discussed the patient's condition with the staff and reviewed records and labs. The patient seems to be less confused and less anxious. The patient also is interacting more. Also, still had episodes of hitting himself, but seems to be also less than before. Also slightly easier to redirect him. Otherwise, the patient is compliant with taking medications with no side effects. ASSESSMENT: The patient showed slight improvement, especially with self-destructive behaviors. TREATMENT PLAN: Continue monitoring his behavior and adjusting psychotropic medications and also continue to work on his irritability and discharge plans. JOB# [id number]
[2018-04-04] MEDS: Levothyroxine 0.075 Mg Tab PO SCH ×2 (06:42→06:53)
[2018-04-04] MEDS: Ferrous Sulfate 325 MG TAB PO SCH ×3 (06:43→16:44)
--- NOTE | 2018-04-04 08:39 | Progress Notes ---
DATE: 04/04/2018 PSYCHIATRIC PROGRESS NOTE Chart reviewed and the patient interviewed. Also discussed the patient's condition with the staff and reviewed records and labs. The patient seems to be calmer and less agitated and less irritable. The patient also is easier to redirect him. Also have fair appetite and fair hygiene. The patient also is able to follow direction, but easier, although he is still slightly confused. Otherwise, the patient shows no side effects of medications. ASSESSMENT: The patient is less agitated and less irritable. TREATMENT PLAN: Continue monitoring his behavior and continue working on behavioral modification. Also, we will continue adjusting psychotropic medications and working on discharge plans. JOB# [id number]
[2018-04-04] MEDS: Fexofenadine 60 mg Tab PO SCH ×2 (09:10→16:44)
[2018-04-04] MEDS: Multivitamin Tab PO SCH (09:10)
[2018-04-04] MEDS: Fluticasone Propionate Nasal 1 SPR SPR NS SCH (09:13)
[2018-04-05] MEDS: Ferrous Sulfate 325 MG TAB PO SCH ×2 (06:46→16:34)
[2018-04-05] MEDS: Levothyroxine 0.075 Mg Tab PO SCH (06:46)
[2018-04-05] MEDS: Multivitamin Tab PO SCH (08:37)
[2018-04-05] MEDS: Fluticasone Propionate Nasal 1 SPR SPR NS SCH (08:40)
[2018-04-05] MEDS: Fexofenadine 60 mg Tab PO SCH ×2 (09:16→16:35)
--- NOTE | 2018-04-06 01:03 | Progress Notes ---
DATE: 04/05/2018 SUBJECTIVE: Chart reviewed and the patient interviewed. Also, discussed the patient's condition with the staff and reviewed records and labs. The patient seems to be calmer. The patient is less irritable and less agitated. Easier to redirect him. The patient also is compliant with taking his medications with no side effects of medications. ASSESSMENT: The patient seems to be calmer. TREATMENT PLAN: We will continue to monitor his behavior and continue current medications. Also, discharge plans and trying to discharge the patient tomorrow if he continues to improve. JOB# [id number]
[2018-04-06] MEDS: Ferrous Sulfate 325 MG TAB PO SCH ×2 (06:49→16:44)
[2018-04-06] MEDS: Levothyroxine 0.075 Mg Tab PO SCH (06:50)
[2018-04-06] MEDS: Fexofenadine 60 mg Tab PO SCH ×2 (09:24→16:47)
[2018-04-06] MEDS: Multivitamin Tab PO SCH (09:24)
[2018-04-06] MEDS: Fluticasone Propionate Nasal 1 SPR SPR NS SCH (09:27)
[2018-04-07] MEDS: Levothyroxine 0.075 Mg Tab PO SCH (06:32)
[2018-04-07] MEDS: Ferrous Sulfate 325 MG TAB PO SCH ×2 (06:32→16:09)
--- NOTE | 2018-04-07 08:40 | Progress Notes ---
DATE: 04/06/2018 THE PATIENT'S ID: A 67-year-old male. SUBJECTIVE: The patient is seen and examined. The patient is lying in the bed. The patient is much calmer than before, taking his medications. The patient remained hemodynamically stable. Unable to get meaningful history. PHYSICAL EXAMINATION: VITAL SIGNS: Temperature 98.4, pulse is 61, respiratory rate is 18, blood pressure 122/68. HEENT: No facial asymmetry. Poor dentition noted. NECK: Supple, no JVD. HEART: Regular. CHEST AND LUNGS: Equal in expansion, no expiratory wheezing. ABDOMEN: Soft. No guarding or rigidity. Bowel sounds are present. No palpable masses. EXTREMITIES: No edema, no cyanosis. Peripheral +1. No calf tenderness. MEDICATIONS: Medication administration record was reviewed. CLINICAL IMPRESSION: 1. Hypertension. 2. Asthma. 3. Degenerative joint disease. 4. Hypothyroidism. 5. Psychotic disorder. 6. High risk for fall. PLAN: 1. Antihypertensive medicine. 2. Monitor blood pressure. 3. Synthroid. 4. Fall precautions. 5. Nutritional support. 6. General nursing care. 7. Psych evaluation and management deferred to psychiatrist. 8. Care plan has been reviewed and discussed with staff. JOB# [id number]
[2018-04-07] MEDS: Multivitamin Tab PO SCH (09:38)
[2018-04-07] MEDS: Fexofenadine 60 mg Tab PO SCH ×2 (09:38→16:08)
[2018-04-07] MEDS: Fluticasone Propionate Nasal 1 SPR SPR NS SCH (09:38)
--- NOTE | 2018-04-07 16:45 | Discharge Summary ---
DATE OF DISCHARGE: 04/07/2018 DATE OF DISCHARGE: 04/07/2018. AGE: 67. SEX: Male. PHYSICIAN: Dr. Feliciano. FINAL DIAGNOSIS: PRIMARY DIAGNOSIS: Unspecified psychosis. SECONDARY DIAGNOSIS: Mental retardation, moderate to severe, with psychotic features and behavioral disturbances. REASON FOR HOSPITALIZATION: The patient was admitted to the hospital because of increased agitation and irritability and the patient also was hitting himself in his face and on the top of his head and the staff in [place] was not able to handle his irritability and the patient was transferred to the hospital. HOSPITAL COURSE: The patient continued to be agitated and in irritable mood. The patient was given Seroquel, but did not help with the patient and it was changed to Zyprexa. The patient's affect was brighter and the patient was getting slowly better. The patient was not suicidal or homicidal, and the patient was discharged from the hospital. Physical exam of the patient showed no major medical problems and the patient had no major medical issues while in the hospital. AFTER DISCHARGE PLANS: The patient discharged from the hospital and went back to [place] with plan to follow him up there. EXPECTED OUTCOME AFTER DISCHARGE: Fair if the patient continued to take psychotropic medications and follow up with discharge plans. JOB# [id number]
--- NOTE | 2018-04-07 19:49 | Progress Notes ---
DATE: SUBJECTIVE: Chart reviewed and the patient interviewed. I also discussed the patient's condition with the staff and reviewed records and labs. The patient is still agitated and restless and is still having episodes of hitting himself. The patient also is suspicious and he is resisting care. The patient is also compliant with taking his medications, yet he is still agitated and irritable. Otherwise, ____ his medications, but it seems that the Seroquel has not been helping him as much. ASSESSMENT: The patient is still psychotic and can be dangerous to self. TREATMENT PLAN: Continue to monitor his behavior and his condition closely and continue adjusting psychotropic medication and followup. JOB# [id number]
--- NOTE | 2018-04-08 06:33 | Progress Notes ---
DATE: 04/07/2018 PSYCHIATRIC PROGRESS NOTE Chart reviewed and the patient interviewed. Also discussed the patient's condition with the staff and reviewed records and labs. The patient was supposed to be discharged yesterday and I dictated discharge summary. The patient's caregiver refused to take the patient because when they came to pick him up, the patient was severely agitated and restless and he was in irritable mood and he was hitting himself on his head and discharge was rescinded until he is calmer and the patient was not discharged. JOB# [id number]
--- NOTE | 2018-04-08 06:40 | Progress Notes ---
DATE: 04/08/2018 SUBJECTIVE: Chart reviewed and the patient interviewed. Also discussed the patient's condition with the staff and reviewed records and labs. The patient still has episodes of agitation and irritability that postponed his discharge yesterday. The patient still needs lots of redirections and he still has episodes of hitting and uncooperative with treatment because of both his mental inabilities and his episodes of agitation. The patient also is still confused. Otherwise, the patient is compliant with taking his medications with no side effects of medications. ASSESSMENT: The patient is still agitated and is still in irritable mood and psychotic. TREATMENT PLAN: We will continue to monitor his behavior and his condition. Also, we will increase Zyprexa to 5 mg 3 times a day and 2.5 mg every 6 hours on a p.r.n. for agitation and we will continue to follow up his behavior closely. Also, we will work with oil field caser as well as the [facility] in regard to discharge plans. JOB# [id number]
[2018-04-08] MEDS: Levothyroxine 0.075 Mg Tab PO SCH (06:41)
[2018-04-08] MEDS: Ferrous Sulfate 325 MG TAB PO SCH ×2 (06:42→16:43)
[2018-04-08] MEDS: Fexofenadine 60 mg Tab PO SCH ×2 (09:36→16:43)
[2018-04-08] MEDS: Multivitamin Tab PO SCH (09:37)
[2018-04-08] MEDS: Fluticasone Propionate Nasal 1 SPR SPR NS SCH (09:37)
[2018-04-09] MEDS: Ferrous Sulfate 325 MG TAB PO SCH ×2 (06:30→17:34)
[2018-04-09] MEDS: Levothyroxine 0.075 Mg Tab PO SCH (06:30)
[2018-04-09] MEDS: Multivitamin Tab PO SCH (09:03)
[2018-04-09] MEDS: Fexofenadine 60 mg Tab PO SCH ×2 (09:04→17:41)
[2018-04-09] MEDS: Fluticasone Propionate Nasal 1 SPR SPR NS SCH (09:05)
--- NOTE | 2018-04-09 23:02 | Progress Notes ---
DATE: SUBJECTIVE: Chart reviewed and the patient interviewed. Also discussed the patient's condition with the staff and reviewed records and labs. The patient still has episodes of anxious and irritability and cutting himself, but seems to be less than before. He still needs lots of redirections. The patient also is denying any side effects of medications. He still has not been able to follow instructions and because of his aggression [facility] where he lives currently refusing to take him according to staff. ASSESSMENT: The patient is still agitated and psychotic. TREATMENT PLAN: Continue to monitor his behavior and his condition closely and continue adjusting psychotropic medications and continue to follow up. JOB# [id number]
[2018-04-10] MEDS: Levothyroxine 0.075 Mg Tab PO SCH (06:31)
[2018-04-10] MEDS: Ferrous Sulfate 325 MG TAB PO SCH ×2 (06:31→18:43)
[2018-04-10] MEDS: Fluticasone Propionate Nasal 1 SPR SPR NS SCH (09:08)
[2018-04-10] MEDS: Multivitamin Tab PO SCH (09:09)
[2018-04-10] MEDS: Fexofenadine 60 mg Tab PO SCH ×2 (09:09→18:42)
--- NOTE | 2018-04-10 09:44 | Progress Notes ---
DATE: 04/10/2018 SUBJECTIVE: Chart reviewed and the patient interviewed. Also discussed the patient's condition with the staff and reviewed records and labs. The patient is still extremely agitated and irritable, but seems to be calmer than before. The patient also is slightly easier to redirect him. The patient also is interacting slightly more. He denies any intention to harm self or others. The patient also denies any side effects of medications. He is still confused and forgetful because of his mental disabilities. ASSESSMENT: The patient seems to be slightly calmer, but still agitated and irritable. TREATMENT PLAN: Continue monitoring his behavior and his condition closely. Also, we will increase Zyprexa to 5 mg twice a day and 10 mg at bedtime and continue to follow up closely. JOB# [id number]
[2018-04-11] MEDS: Levothyroxine 0.075 Mg Tab PO SCH (06:48)
[2018-04-11] MEDS: Ferrous Sulfate 325 MG TAB PO SCH ×2 (06:48→17:23)
[2018-04-11] MEDS: Fexofenadine 60 mg Tab PO SCH ×2 (09:13→17:23)
[2018-04-11] MEDS: Multivitamin Tab PO SCH (09:14)
[2018-04-11] MEDS: Fluticasone Propionate Nasal 1 SPR SPR NS SCH (09:14)
--- NOTE | 2018-04-11 20:51 | Progress Notes ---
DATE: 04/11/2018 SUBJECTIVE: Chart reviewed and the patient interviewed. Also, discussed the patient's condition with the staff and reviewed records and labs. The patient is calmer and less irritable and less agitated. The patient also is easier to redirect. The patient also slept slightly better last night. Also, the patient denies any side effects of medications. ASSESSMENT: The patient is less agitated, but still needs redirection. TREATMENT PLAN: We will continue monitoring his behavior and his condition closely. Also, continue adjusting psychotropic medications and monitor his behavior. JOB# [id number]
[2018-04-12] MEDS: Levothyroxine 0.075 Mg Tab PO SCH (06:44)
[2018-04-12] MEDS: Ferrous Sulfate 325 MG TAB PO SCH ×2 (06:44→17:22)
[2018-04-12] MEDS: Fexofenadine 60 mg Tab PO SCH ×2 (09:20→17:22)
[2018-04-12] MEDS: Multivitamin Tab PO SCH (09:20)
[2018-04-12] MEDS: Fluticasone Propionate Nasal 1 SPR SPR NS SCH (09:24)
--- NOTE | 2018-04-12 20:24 | Progress Notes ---
DATE: SUBJECTIVE: Chart reviewed and the patient interviewed. Also discussed the patient's condition with the staff and reviewed records and labs. The patient is still guarded. The patient also is still combative at times and tries to hit himself, but seems to be less than before. The patient also is still banging his head at the times and slapping his face. On the other hand, the patient continued to comply with taking his medications with no side effects of medications. ASSESSMENT: The patient is still agitated and in irritable mood. TREATMENT PLAN: Continue to monitor behavior and condition closely and continue adjusting psychotropic medications and working on discharge plans and placement issue. JOB# [id number]
--- NOTE | 2018-04-12 23:56 | Progress Notes ---
DATE: 04/12/2018 IDENTIFICATION: This is a 67-year-old male. SUBJECTIVE: The patient is seen and examined, unable to get meaningful history from the patient. Discussed with nursing staff about their concerns. PHYSICAL EXAMINATION: VITAL SIGNS: On today's exam, temperature 99, pulse is 90, respiratory rate 18, blood pressure 118/80. HEENT: No facial asymmetry. Poor dentition noted. NECK: Supple, no JVD. HEART: Both heart sounds are regular. CHEST AND LUNGS: Equal in expansion, no expiratory wheezing. ABDOMEN: Soft. No guarding or rigidity. Bowel sounds are present. No palpable mass. EXTREMITIES: No edema. NEUROLOGIC: Not following any commands. CLINICAL IMPRESSION: 1. Hypertension. 2. Hypothyroidism. 3. Psychotic disorder. 4. Degenerative joint disease. 5. Dementia. 6. Allergic rhinosinusitis. 7. Developmental disability. 8. Fall risk. PLAN: 1. Fall precautions. 2. Synthroid. 3. Antihypertensive medicine. 4. Psych medication. 5. Psych followup. 6. General nursing care. 7. Nutritional support. 8. Followup lab. 9. We will continue to follow this patient during the stay in the hospital. JOB# [id number]
[2018-04-13] MEDS: Ferrous Sulfate 325 MG TAB PO SCH ×2 (06:44→16:29)
[2018-04-13] MEDS: Levothyroxine 0.075 Mg Tab PO SCH (06:44)
[2018-04-13 07:57] LABS: % BASOPHILS 0.4 % (0.0-2.0); % EOSINOPHILS 4.5 % (0.0-5.0); % LYMPHOCYTES 30.7 % (20.0-50.0); % MONOCYTES 8.6 % (2.0-10.0); % NEUTROPHILS 55.8 % (40.0-80.0); EOSINOPHILE ABSOLUTE 0.4 Th/cmm (0.1-0.4); HEMATOCRIT 41.4 % (41.0-60); HEMOGLOBIN 13.9 gm/dL (12-16); MEAN CELL VOLUME 85.5 fl (80-99); MEAN CORPUSCULAR HEMOGLOBIN 28.8 pg (27.0-31.0); MEAN CORPUSCULAR HGB CONC 33.7 pg (28.0-36.0); MEAN PLATELET VOLUME 8.8 fl; MONOCYTE ABSOLUTE 0.9 Th/cmm (0.3-1.0); NEUTROPHILE ABSOLUTE 5.6 Th/cmm (1.8-8.0); PLATELET COUNT 270 Th/cmm (150-400); RED BLOOD COUNT 4.84 Mil/cmm (3.80-5.80); WHITE BLOOD COUNT 9.9 Th/cmm (4.8-10.8)
[2018-04-13 08:16] LABS: ALB/GLOB RATIO 1.4 (1.0-1.8); ALBUMIN 3.7 gm/dL (4.2-5.5); ALKALINE PHOSPHATASE 92 U/L (34-104); BILIRUBIN,TOTAL 0.4 mg/dL (0.3-1.0); BUN - UREA NITROGEN 16 mg/dL (7-25); CALCIUM SERUM 9.1 mg/dL (8.6-10.3); CARBON DIOXIDE 25.6 mEq/L (21.0-31.0); CHLORIDE 108 mEq/L (98-107); CREATININE - SERUM 0.8 mg/dL (0.7-1.3); GFR AFRICAN-AMERICAN > 60.0 ml/min (>90); GFR NON AFRICAN-AMERICAN > 60.0 ml/min; GLUCOSE 101 mg/dL (70-105); POTASSIUM SERUM 3.6 mEq/L (3.5-5.1); SGOT 15 U/L (13-39); SGPT/ALT 15 U/L (7-52); SODIUM SERUM 140 mEq/L (136-145); TOTAL PROTEIN,SERUM 6.4 gm/dL (6.0-8.3)
[2018-04-13] MEDS: Multivitamin Tab PO SCH (09:11)
[2018-04-13] MEDS: Fexofenadine 60 mg Tab PO SCH ×2 (09:11→16:30)
[2018-04-13] MEDS: Fluticasone Propionate Nasal 1 SPR SPR NS SCH (09:11)
--- NOTE | 2018-04-14 01:51 | Progress Notes ---
DATE: 04/13/2018 SUBJECTIVE: The patient seen and examined. No new event. OBJECTIVE: VITAL SIGNS: Temperature 98, pulse is 91, respiratory rate 18, blood pressure 115/78. HEENT: No facial asymmetry. NECK: Supple, no JVD. HEART: Regular. LUNGS: Clear. ABDOMEN: Soft. EXTREMITIES: No edema. AVAILABLE DIAGNOSTIC DATA: White count of 9.9, hemoglobin 13.9, platelet 270. BUN and creatinine are 16 and 0.8. Liver functions are normal. Albumin of 3.7. CLINICAL IMPRESSION: 1. Developmental delay. 2. Psychotic disorder. 3. Degenerative joint disease. 4. Hypertension. 5. Hypothyroidism. 6. Allergic rhinosinusitis. 7. History of asthma. 8. Fall risk. 9. Dysphagia. PLAN: 1. Antihypertensive medicine. 2. Low sodium diet. 3. Synthroid. 4. Psych medication. 5. General nursing care. 6. Nutritional support. 7. I will continue to follow this patient during the stay in the hospital. 8. Care plan has been reviewed and discussed with staff. JOB# [id number]
--- NOTE | 2018-04-14 06:29 | Progress Notes ---
DATE: SUBJECTIVE: Chart reviewed and the patient interviewed. Also discussed the patient's condition with the staff and reviewed records and labs. The patient still has episodes of agitation and irritability, but seems to be less than before. The patient also still needs redirections. Otherwise, the patient is compliant with taking his medications. The patient also is still compliant with taking medications with no side effects of medications. ASSESSMENT: The patient is still agitated, but slightly getting better. TREATMENT PLAN: Continue to monitor behavior and also discussed with field case manager discharge plans and placement issue. JOB# [id number]
[2018-04-14] MEDS: Ferrous Sulfate 325 MG TAB PO SCH (06:44)
[2018-04-14] MEDS: Levothyroxine 0.075 Mg Tab PO SCH (06:44)
[2018-04-14] MEDS: Fexofenadine 60 mg Tab PO SCH (09:52)
[2018-04-14] MEDS: Fluticasone Propionate Nasal 1 SPR SPR NS SCH (09:52)
[2018-04-14] MEDS: Multivitamin Tab PO SCH (09:52)
--- NOTE | 2018-04-14 19:50 | Discharge Summary ---
DATE OF DISCHARGE: 04/14/2018 AGE: 67. SEX: Male. PHYSICIAN: Dr. Feliciano. FINAL DIAGNOSIS: PRIMARY DIAGNOSIS: Unspecified psychosis. SECONDARY DIAGNOSIS: Mental retardation, moderate to severe. REASON FOR HOSPITALIZATION: The patient was admitted to the hospital because of increased agitation and self-destructive behavior including hitting himself on the face and on top of his head and unable to follow any directions. HOSPITAL COURSE: The patient continued to be in irritable and angry mood. The patient was given Seroquel, but it was not effective and did not help the patient much and Zyprexa Zydis was added. That helped the patient to be calmer and less agitated and less irritable. Also, is able to follow directions easily. [facility] agreed to take the patient back and the patient was discharged there. PHYSICAL EXAM: Physical exam of the patient showed no major medical problems. Blood workup was also basically within normal. AFTER-DISCHARGE PLANS: The patient discharged from the hospital with plans for outpatient treatment and followup. EXPECTED OUTCOME AFTER DISCHARGE: Fair if the patient continues to take psychotropic medications and follow up with discharge plans. JOB# [id number]
--- NOTE | 2018-04-14 20:38 | Progress Notes ---
DATE: IDENTIFICATION: A 67-year-old male. SUBJECTIVE: The patient was seen and examined by me on 04/14/2018 at 5:45 p.m. before the patient was going to be discharged. The patient was seen with a manager bank who will be taking care of this patient to assist his board and care facility. The patient is much calmer than before. [employer] Admin is asking me to refill his medication as well. The patient currently does not provide a meaningful history. PHYSICAL EXAMINATION: VITAL SIGNS: Temperature 98.5, pulse 70, respiratory rate is 18, blood pressure 130/60. HEENT: Poor dentition. NECK: Supple, no JVD. HEART: Regular. CHEST AND LUNGS: Equal in expansion, no expiratory wheezing. ABDOMEN: Soft. No guarding, no rigidity. Bowel sounds present. EXTREMITIES: No edema. NEUROLOGIC: Not following any commands. CLINICAL IMPRESSION: 1. Hypertension. 2. Hypothyroidism. 3. Allergic rhinosinusitis. 4. History of asthma. 5. Degenerative joint disease. 6. Gastroesophageal reflux disease. 7. Dysphagia. PLAN: The patient is stable for discharge to home with antihypertensive medication with Synthroid, change Elisha to Claritin since it is expensive and continue with the Flonase nasal spray as prescribed and use albuterol inhaler other than inhalation therapy, discontinue his Mylanta and use Prilosec 20 mg daily as well, which prescription has been given as well. The patient will be followed by tape transferrer in nursing at assisted living facility. JOB# [id number]
== END 2018-04-14 17:15 | disposition home or self-care (01) | DRG 885 ==
LOC: ER 16:54 → GERO2 19:30
PROVIDERS: ADMIT Psychiatry & Neurology Psychiatry; ATTEND Psychiatry & Neurology Psychiatry
DX: F29 Unspecified psychosis not due to a substance or known physiological condition (principal); F72 Severe intellectual disabilities; I10 Essential (primary) hypertension; E03.9 Hypothyroidism, unspecified; M19.90 Unspecified osteoarthritis, unspecified site; F03.90 Unspecified dementia, unspecified severity, without behavioral disturbance, psychotic disturbance, mood disturbance, and anxiety; R00.1 Bradycardia, unspecified; J45.909 Unspecified asthma, uncomplicated; R62.50 Unspecified lack of expected normal physiological development in childhood; K21.9 Gastro-esophageal reflux disease without esophagitis; R13.10 Dysphagia, unspecified; Z82.49 Family history of ischemic heart disease and other diseases of the circulatory system
CPT/HCPCS: 36415-UA; 80053-TC; 80061-TC; 80307; 80320-TC; 80329-TC; 81001-TC; 83036-90; 84443-TC; 84484-TC; 85025-TC; 86592-TC; 93005; J2060; J7051; Z7610

== ENCOUNTER 2018-11-27 09:25 | Inpatient (IN) | payer MEDICARE, MEDICAID ==
--- NOTE | 2018-11-27 10:04 | ED Physician Chart ---
ED Chief Complaint/HPI - Patient Information Date Seen:: 11/27/18 Time Seen:: 09:30 Chief Complaint:: Agitation History of Present Illness:: onset x 3 days of agitation and aggressive behavior; no report of trauma, SIs, H /As, S/T, neck pain, cough, C/P, SOB, Abd. pain, or urinary s/s Allergies:: Allergies Allergy/AdvReac Type Severity Reaction Status Date / Time No Known Allergies Allergy Verified 11/27/18 09:38 Vitals:: Vital Signs - 8 hr 11/27/18 09:32 Temp 98.9 F HR 89 RR 16 BP 129/79 O2 Sat % 98 Historian:: Patient, Friend Review:: Nurse's Note Reviewed, Old Chart Reviewed ED Review of Systems - Review of Systems General/Constitutional: No fever, No chills, No weight loss, No weakness, No diaphoresis, No edema, No loss of appetite Skin: No skin lesions, No rash, No bruising Head: No headache, No light-headedness Eyes: No loss of vision, No pain, No diplopia ENT: No earache, No nasal drainage, No sore throat, No tinnitus Neck: No neck pain, No swelling, No thyromegaly, No stiffness, No mass noted Cardio Vascular: No chest pain, No palpitations, No PND, No orthopnea, No edema Pulmonary: No SOB, No cough, No sputum, No wheezing GI: No nausea, No vomiting, No diarrhea, No pain, No melena, No hematochezia, No constipation, No hematemesis G/U: No dysuria, No frequency, No hematuria, No nacturia Musculoskeletal: No bone or joint pain, No back pain, No muscle pain Endocrine: No polyuria, No polydipsia Psychiatric: Prior psych history, Depression, Anxiety, No suicidal ideation, No homicidal ideation, No auditory hallucination, No visual hallucination Hematopoietic: No bruising, No lymphadenopathy Allergic/Immuno: No urticaria, No angioedema Neurological: No syncope, No focal symptoms, No weakness, No paresthesia, No headache, No seizure, No dizziness, Confusion, No vertigo ED Past Medical History - Past Medical History Obtainable: Yes Past Medical History: HTN, PUD/GERD, Thyroid disorder, Dementia Family History: HTN Social History: Non Smoker, No Alcohol, No Drug Use, Single, Care Facility Surgical History: None Psychiatricy History: Depression, Schizophrenia, Bipolar, Dementia Medication: Reviewed Family Medical History - Family Member Mother History Unknown: Yes Ethnicity: Unknown Living Status: Unknown Hx Family Cancer: (unknown) Hx Family Coronary Artery Disease: (unknown) Hx Family Congestive Heart Failure: (unknown) Hx Family Hypertension: (unknown) Hx Family Stroke: (unknown) Hx Family Diabetes: (unknown) Hx Family Seizures: (unknown) Hx Family Dementia: (unknown) Hx Family AIDS: (unknown) Hx Family COPD: (unknown) Hx Family Hepatitis: (unknown) Hx Family Psychiatric Problems: (unknown) Hx Family Tuberculosis: (unknown) ED Physical Exam - Physical Examination General/Constitutional: Awake, Well-developed, well-nourished, Alert, No distress, GCS 15, Non-toxic appearing, Ambulatory Head: Atraumatic Eyes: Lids, conjuctiva normal, PERRL, EOMI Skin: Nl inspection, No rash, No skin lesions, No ecchymosis, Well hydrated, No lymphadenopathy ENMT: External ears, nose nl, TM canals nl, Nasal exam nl, Lips, teeth, gums nl , Oropharynx nl, Tonsils nl Neck: Nontender, Full ROM w/o pain, No JVD, No nuchal rigidity, No bruit, No mass, No stridor Other Neck comments:: supple; no meningeal signs; no cervical tenderness; no bruits Respiratory: Nl effort/Exclusion, Clear to Auscultation, No Wheeze/Rhonchi/Rales Cardio Vascular: RRR, No murmur, gallop, rubs, NL S1 S2, Carotid/Femoral/Distal pulses equal bilaterally GI: No tenderness/rebounding/guarding, No organomegaly, No hernia, Normal BS's, Nondistended, No mass/bruits, No McBurney tenderness, Rectum exam nl Other GI comments:: no pulsatile masses : No CVA tenderness Extremities: No tenderness or effusion, Full ROM, normal strength in all extremities, No edema, Normal digits & nails Neuro/Psych: Alert/oriented, DTR's symmetric, Normal sensory exam, Normal motor strength, Judgement/insight normal, Mood normal, Normal gait, No focal deficits Other Neuro/Psych comments:: + Psychomotor Agitation; no SIs; Mood/Affect: Labile Misc: Normal back, No paraspinal tenderness ED Labs/Radiology/EKG Results - Lab Results Comments:: Reviewed - EKG Interpretations EKG Time:: 09:55 Rate & Rhythm: 86; NSR Comments:: non-specific st-t changes ED Septic Shock - . Is Septic Shock (SBP<90, OR Lactate>4 mmol\L) present?: No - <6hrs of presentation: Vital Signs: Vital Signs - 8 hr 11/27/18 09:32 Temp 98.9 F HR 89 RR 16 BP 129/79 O2 Sat % 98 ED Reassessment (Disposition) - Reassessment Reassessment Condition:: Improved - Diagnosis Diagnosis:: Agitation; Medical Clearance; Bipolar Disorder - Aftercare/Follow up Instructions Aftercare/Follow-Up Instructions:: Counseled pt regarding lab results/diagnosis & need follow up, Counseled pt & family regarding lab results/diagnosis & need follow up - Patient Disposition Discharge/Transfer:: Acute Care w/in this hosp Admitted to:: [facility] Condition at Disposition:: Stable, Improved
[2018-11-27 10:31] LABS: ACETAMINOPHEN < 10.0 ug/mL (10.0-30.0); ALB/GLOB RATIO 1.6 (1.0-1.8); ALBUMIN 4.4 gm/dL (4.2-5.5); ALKALINE PHOSPHATASE 106 U/L (34-104); ANION GAP 12.6 (7.0-16.0); BILIRUBIN,TOTAL 0.5 mg/dL (0.3-1.0); BUN - UREA NITROGEN 12 mg/dL (7-25); CALCIUM SERUM 9.5 mg/dL (8.6-10.3); CHLORIDE 104 mEq/L (98-107); CHOLESTEROL 167 mg/dL (<200); CREATININE - SERUM 0.8 mg/dL (0.7-1.3); GFR AFRICAN-AMERICAN > 60.0 ml/min (>90); GFR NON AFRICAN-AMERICAN > 60.0 ml/min; GLUCOSE 113 mg/dL (70-105); HDL -HIGH DENSITY LIPOPROTEIN 58 mg/dL (23-92); POTASSIUM SERUM 3.6 mEq/L (3.5-5.1); SGOT 15 U/L (13-39); SGPT/ALT 19 U/L (7-52); SODIUM SERUM 138 mEq/L (136-145); TOTAL PROTEIN,SERUM 7.2 gm/dL (6.0-8.3); TRIGLYCERIDES 136 mg/dL (<150)
[2018-11-27 10:32] LABS: % BASOPHILS 0.1 % (0.0-2.0); % EOSINOPHILS 4.7 % (0.0-5.0); % LYMPHOCYTES 26.1 % (20.0-50.0); % MONOCYTES 7.3 % (2.0-10.0); % NEUTROPHILS 61.8 % (40.0-80.0); EOSINOPHILE ABSOLUTE 0.4 Th/cmm (0.1-0.4); HEMATOCRIT 46.9 % (41.0-60); HEMOGLOBIN 15.5 gm/dL (12-16); MEAN CELL VOLUME 85.3 fl (80-99); MEAN CORPUSCULAR HEMOGLOBIN 28.1 pg (27.0-31.0); MONOCYTE ABSOLUTE 0.6 Th/cmm (0.3-1.0); NEUTROPHILE ABSOLUTE 4.8 Th/cmm (1.8-8.0); PLATELET COUNT 290 Th/cmm (150-400); RED CELL DISTRIBUTION WIDTH 13.2 % (11.5-20.0); WHITE BLOOD COUNT 7.8 Th/cmm (4.8-10.8)
[2018-11-27 11:35] LABS: URINE SOURCE CLEAN C
[2018-11-27 11:39] LABS: URINE BILIRUBIN NEGATIVE (NEGATIVE); URINE BLOOD NEGATIVE (NEGATIVE); URINE GLUCOSE (UA) NEGATIVE (NEGATIVE); URINE KETONE NEGATIVE (NEGATIVE); URINE LEUKOCYTE ESTERASE NEGATIVE (NEGATIVE); URINE NITRATE NEGATIVE (NEGATIVE); URINE PROTEIN NEGATIVE (NEGATIVE); URINE UROBILINOGEN 0.2 E.U./dL (0.2 - 1.0)
[2018-11-27 11:43] LABS: URINE CLARITY CLEAR (CLEAR); URINE COLOR YELLOW; URINE MICROSCOPIC INDICATED? YES
[2018-11-27 11:46] LABS: URINE BACTERIA OCCASIONAL /hpf (NONE SEEN); URINE EPITHELIAL CELLS NONE SEEN /lpf (FEW); URINE RBC NONE SEEN /hpf (0-5); URINE WBC NONE SEEN /hpf (0-5)
[2018-11-27 12:00] LABS: AMPHETAMINE URINE NEGATIVE (NEGATIVE); BARBITURATES URINE NEGATIVE (NEGATIVE); BENZODIAZEPINES QUAL URINE POSITIVE (NEGATIVE); CANNABINOID THC NEGATIVE (NEGATIVE); COCAINE METABOLITE QUAL URINE NEGATIVE (NEGATIVE); METHADONE URINE NEGATIVE (NEGATIVE); METHAMPHETAMINES QUAL URINE NEGATIVE (NEGATIVE); OPIATES (MORPHINE) QUAL. URINE NEGATIVE (NEGATIVE); PHENCYCLIDINE (PCP) URINE NEGATIVE (NEGATIVE); TRICYCLICS (TCA) QUAL. URINE POSITIVE (NEGATIVE)
[2018-11-27 15:37] VITALS: BP 135/71
[2018-11-27] MEDS ORDERED: Codeine/Promethazine Susp 5 mL UDC PO PRN (15:55)
[2018-11-27] MEDS ORDERED: Magnesium Hydroxide (MOM) 30 mL UDC PO PRN (15:55)
[2018-11-27] MEDS ORDERED: Albuterol Nebulizer 2.5mg/3mL HHN PRN (15:55)
[2018-11-28] MEDS: Levothyroxine 0.075 Mg Tab PO SCH (06:37)
[2018-11-28 07:05] LABS: A1C 5.6 % (4.8-5.6)
[2018-11-28] MEDS: Fluticasone Propionate Nasal 1 SPR SPR NS SCH (08:36)
[2018-11-28] MEDS: Ferrous Sulfate 325 MG TAB PO SCH ×2 (08:37→16:23)
--- NOTE | 2018-11-28 17:36 | Psychiatric Evaluation ---
DATE OF SERVICE: PSYCHIATRIC INITIAL EVALUATION AND MENTAL STATUS EXAM PATIENT'S AGE: 68-year-old. SEX: Male. PHYSICIAN: Dr. Feliciano. CHIEF COMPLAINT: Hurting himself. HISTORY OF PRESENT ILLNESS: The patient is a 68-year-old male who lives in [facility]. The patient has been extremely agitated and aggressive and in irritable mood. The patient has been hitting himself in the head all the time and has been talking constantly nonsense and has been entering other patient's rooms, waking them up in the middle of the night. Also, has difficulty following any directions. The patient also is angry and has been talking to self and actively hallucinating. I saw the patient in the [place] [facility] and adjusted his medications and added Klonopin and increased Seroquel, yet he has the same behavior and staff was not able to handle the patient and was sent to the hospital for evaluation and adjusting medications. The patient is still agitated and in irritable mood and has difficulty following directions. Also, still hitting self. PAST PSYCHIATRIC HISTORY: The patient has a history of mental retardation and psychosis and also multiple hospitalizations. PAST MEDICAL HISTORY: The patient has hypertension as well as peptic ulcer disease, gastroesophageal reflux disease and thyroid disorder. FAMILY HISTORY: None psychiatric but has history of hypertension. SOCIAL HISTORY: The patient lives in [facility]. He belongs to [facility]. The patient does not smoke cigarette, drink alcohol or use any street drugs. The patient is single, never , and has no children. ALLERGIES: No known allergies. MENTAL STATUS EXAMINATION: The patient appears older than stated age. Confused. Anxious. Irritable mood. Thought processes are with poverty of speech and mumbling and unable to understand. Difficulty expressing self. The patient did not answer questions regarding hallucinations or delusions, but actively responding. The patient did not answer questions regarding suicide or homicide, but easily agitated. The patient is alert, but seems to be disoriented to time, place, person, and situation. The patient seems to be of [id number] mental retardation, based on his verbal ability. ASSESSMENT: PRIMARY DIAGNOSIS: Unspecified psychosis. SECONDARY DIAGNOSIS: Mental retardation, moderate to severe. TREATMENT PLAN: We will monitor the patient's behavior and condition closely. Also, adjusting psychotropic medications and work on behavioral modification. ESTIMATED LENGTH OF STAY: 5-7 days. THE PATIENT'S STRENGTHS AND WEAKNESSES: The patient seems to be in relatively fair health and have support from people in the [place] [facility]. Weaknesses are his poor impulse control and his mental abilities. AFTER DISCHARGE PLAN: The patient will return to the [place] [facility] and will continue treating him there. CRITERIA FOR DISCHARGE: Better impulse control and stabilizing psychotropic medications. [facility]# [id number]
[2018-11-29] MEDS: Levothyroxine 0.075 Mg Tab PO SCH (06:32)
[2018-11-29] MEDS: Fluticasone Propionate Nasal 1 SPR SPR NS SCH (09:17)
[2018-11-29] MEDS: Ferrous Sulfate 325 MG TAB PO SCH ×2 (09:19→17:27)
--- NOTE | 2018-11-29 14:25 | History & Physical ---
ADMIT DATE: PATIENT IDENTIFICATION: A 68-year-old male. REQUESTING PHYSICIAN: Dr. Stan Feliciano. PRESENTING COMPLAINT: None. HISTORY SOURCE: Talking to the staff as well as reviewing the chart. HISTORY OF PRESENT ILLNESS: A 68-year-old male who resides at [facility], has been followed by Dr. Feliciano and myself, brought in to the Emergency Room for evaluation of increasing agitation, hitting himself and trying to hit others. The patient was seen by ER MD and subsequently admitted to the hospital for further treatment. PAST MEDICAL HISTORY: Remarkable for: 1. Developmental disability. 2. Dementia. 3. Hypothyroidism. 4. Hypertension. 5. Psychotic disorder. 6. Degenerative joint disease. 7. Allergic rhinosinusitis. MEDICATIONS AT HOME: Have been reviewed and reconciled appropriately. ALLERGIES: None. SOCIAL HISTORY: Lives in assisted living facility. No history of smoking cigarette, alcohol use or drug use. FAMILY MEDICAL HISTORY: Unknown. REVIEW OF SYSTEMS: Unable to obtain meaningful history from the patient. PHYSICAL EXAMINATION: GENERAL: The patient is alert, awake, lying in the bed without any acute distress. VITAL SIGNS: Temperature 98, pulse is 64, respiratory rate 16, blood pressure 136/80. SKIN: Warm to touch. Adequate skin turgor. HEENT: Normocephalic, atraumatic. Extraocular muscles are intact. Tongue was pink and coated. No oral lesion noted. Multiple absent teeth noted. NECK: Supple, no JVD. No hepatojugular reflex. No lymphadenopathy, thyromegaly or carotid bruit. HEART: Both heart sounds are regular. No S3, no S4, no murmur. CHEST: Lung equal in expansion, no expiratory wheezing. ABDOMEN: Soft. No guarding, no rigidity. Liver, spleen not palpable. No palpable mass. EXTREMITIES: No edema, no cyanosis. Peripheral pulses +1. No calf tenderness noted. EXTERNAL GENITAL AND INGUINAL SITES: Not done. NEUROLOGIC: Alert and awake, follows commands. Moving upper and lower extremity without any difficulty. AVAILABLE DIAGNOSTIC DATA: Performed in the Emergency Room, which includes a white count of 7.8, hemoglobin 15.5, platelet count 290. Sodium 130, potassium 3.6, chloride 104, CO2 of 25, anion gap 12.6, BUN and creatinine 12 and 0.8, glucose 113, alkaline phosphatase 106. Troponin less than 0.01. Urinalysis negative. Urine tox screen is positive for tricyclics and benzos. RPR was unremarkable. MRSA colonization is currently positive. CLINICAL IMPRESSION: 1. Developmental disability. 2. Dementia. 3. Hypertension. 4. Hypothyroidism. 5. Degenerative joint disease. 6. High risk for fall. 7. Psychotic disorder. 8. Allergic rhinosinusitis. PLAN: The patient is admitted by Dr. Feliciano to [facility]. At this time, psychiatric evaluation and management will be deferred to psychiatrist. The patient will be placed on his home medication as the patient was receiving, which include levothyroxine for hypothyroidism, Claritin and Flonase for allergic rhinosinusitis. Continue to provide amlodipine for hypertension. For asthma, the patient can use albuterol inhaler as needed. Symptoms management and medication management will be provided. General nursing care will be given. The patient will be continued on losartan for hypertension as well. The patient will be continued to be followed by me during his stay in the hospital. Fall precautions will be continued. JOB# [id number]
[2018-11-29] MEDS: OLANZapine 10 mg Oral Disintegrating Tab PO SCH (20:40)
[2018-11-30] MEDS: Levothyroxine 0.075 Mg Tab PO SCH (06:41)
[2018-11-30] MEDS: Ferrous Sulfate 325 MG TAB PO SCH ×2 (09:20→17:42)
[2018-11-30] MEDS: Fluticasone Propionate Nasal 1 SPR SPR NS SCH (09:36)
--- NOTE | 2018-11-30 09:45 | Progress Notes ---
DATE: 11/29/2018 PSYCHIATRIC PROGRESS NOTE SUBJECTIVE: Chart reviewed and the patient interviewed. Also discussed the patient's condition with the staff and reviewed records and labs. The patient is still extremely agitated and earlier today he was hitting himself in the head strongly and kept getting into other the patient's room in the middle of the night and he has not been able to sleep well. The patient also is still easily agitated and has difficulty following directions because of his mental abilities and his agitation. The patient also although taking Klonopin and Seroquel, it seems is not helping much with his agitation and self-destructive behavior. ASSESSMENT: The patient is still agitated and in irritable mood and aggressive and can be dangerous to self. TREATMENT PLAN: We will continue monitoring behavior closely and working on behavioral modification. Also, we will decrease Klonopin to 1 mg in the morning and 2 mg at bedtime and also decrease Seroquel to 50 mg twice a day and stop the evening, the night time dose. Also, we will start the patient on Depakote 250 mg twice a day and Zyprexa 10 mg at bedtime and continue to follow up closely. JOB# [id number]
--- NOTE | 2018-11-30 19:50 | Progress Notes ---
DATE: 11/30/2018 PSYCHIATRIC PROGRESS NOTE SUBJECTIVE: Chart was reviewed and the patient interviewed. Also discussed the patient's condition with the staff and reviewed records and labs. The patient seems to be calmer and seems to be less agitated since I changed his medications yesterday. The patient also is slightly easier to redirect him. The patient is still having episodes of agitation and irritability, but less than before. Otherwise, the patient is compliant with taking his medications. ASSESSMENT: The patient seems to be slightly calmer, but is still psychotic. TREATMENT PLAN: Continue to monitor his behavior and his condition closely because the patient still can be high risk, dangerous to self, and is still psychotic. Continue to follow up his medications and his condition closely. [facility]# [id number]
--- NOTE | 2018-11-30 20:15 | Progress Notes ---
DATE: 11/30/2018 IDENTIFICATION: A 68-year-old male. SUBJECTIVE: The patient seen and examined. The patient is lying in the bed. The patient does not provide any meaningful history. PHYSICAL EXAMINATION: VITAL SIGNS: Temperature 98, pulse is 80, respiratory rate 18, blood pressure 120/67. HEENT: No evidence of facial asymmetry. Multiple absent teeth noted. NECK: Supple, no JVD. HEART: Regular. CHEST: Lungs equal in expansion with no expiratory wheezing. ABDOMEN: Soft. EXTREMITIES: No edema. NEUROLOGIC: Alert, awake, following commands. CLINICAL IMPRESSION: 1. Hypertension. 2. Hypothyroidism. 3. Allergic rhinosinusitis. 4. Degenerative joint disease. 5. Psychotic disorder. 6. Developmental disability. PLAN: 1. Fall precautions. 2. Nutritional support. 3. Synthroid. 4. Antihypertensive medication. 5. Monitor blood pressure. 6. Psychotic evaluation and management deferred to psychiatrist. 7. General nursing care. 8. Continue Claritin and Flonase. 9. We will continue to follow this patient during the stay in the hospital. JOB# [id number]
[2018-11-30] MEDS: OLANZapine 10 mg Oral Disintegrating Tab PO SCH (21:55)
[2018-12-01] MEDS: Levothyroxine 0.075 Mg Tab PO SCH (06:36)
[2018-12-01] MEDS: Fluticasone Propionate Nasal 1 SPR SPR NS SCH (08:10)
[2018-12-01] MEDS: Ferrous Sulfate 325 MG TAB PO SCH ×3 (08:11→16:50)
[2018-12-01] MEDS: OLANZapine 10 mg Oral Disintegrating Tab PO SCH (20:45)
--- NOTE | 2018-12-02 02:34 | Progress Notes ---
DATE: 12/01/2018 Case was discussed with staff of the patient and reviewed records. I am covering for Dr. Feliciano. This is a 68-year-old male, who was admitted on 11/27/2018 from [facility]. The patient has been very agitated, aggressive, irritable, hitting himself, and all the time, has been talking constantly nonsensical, entering patient's room. The patient is developmentally disabled. He continues to be unable to make safe plan for his self-care or participate in meaningful conversation. He cannot express himself. His medication has been adjusted and he is starting to be a little bit calmer and less psychotic, though he is still unable to express himself and that makes him very frustrated. He is on Depakote 250 mg twice a day, olanzapine 10 mg at bedtime, Seroquel 50 mg twice a day with no side effects, no sedation, no nausea, and no extrapyramidal symptoms. We will continue to work with the patient in group therapy and milieu therapy and adjust the medications as needed. JOB# [id number]
[2018-12-02] MEDS: Levothyroxine 0.075 Mg Tab PO SCH (06:32)
[2018-12-02] MEDS: Ferrous Sulfate 325 MG TAB PO SCH ×2 (08:52→16:41)
[2018-12-02] MEDS: Fluticasone Propionate Nasal 1 SPR SPR NS SCH (15:25)
[2018-12-02] MEDS: OLANZapine 10 mg Oral Disintegrating Tab PO SCH (20:05)
[2018-12-03] MEDS: Levothyroxine 0.075 Mg Tab PO SCH (06:29)
[2018-12-03] MEDS: Ferrous Sulfate 325 MG TAB PO SCH ×2 (08:49→17:53)
[2018-12-03] MEDS: Fluticasone Propionate Nasal 1 SPR SPR NS SCH (08:52)
--- NOTE | 2018-12-03 10:17 | Progress Notes ---
DATE: 12/02/2018 PSYCHIATRIC PROGRESS NOTE SUBJECTIVE: Chart reviewed and the patient interviewed. Also discussed the patient's condition with the staff and reviewed records and labs. The patient still has episodes of agitation and hitting himself on his head, but seems to be slightly less than before. The patient also is still easily agitated and anxious and irritable. He also still needs close monitoring because of his self-destructive behavior. He also still have mood swings and at times calm and sometimes agitated. On the other hand, easier to redirect him. The patient also is compliant with taking medication. He has no side effects of medications. ASSESSMENT: The patient is still agitated and is still exhibiting self-destructive behavior. TREATMENT PLAN: We will continue monitoring his behavior and his condition closely. Also, continue to adjust psychotropic medications. Also, we will get Depakote blood level in a couple of days. [facility]# [id number]
[2018-12-03] MEDS ORDERED: Haloperidol Lactate 5 mg/mL 1mL Vial IM ONE (12:47)
[2018-12-03] MEDS ORDERED: Haloperidol Lactate 5 mg/mL 1mL Vial ONE (12:57)
[2018-12-03] MEDS: OLANZapine 10 mg Oral Disintegrating Tab PO SCH (20:55)
--- NOTE | 2018-12-04 03:58 | Progress Notes ---
DATE: 12/03/2018 IDENTIFICATION: A 68-year-old male. SUBJECTIVE: The patient seen and examined. The patient is lying in the bed. No new event. The patient is developmentally delayed, unable to get meaningful history. Nurse's note has been reviewed. PHYSICAL EXAMINATION: VITAL SIGNS: Temperature 97.9, pulse is 82, respiratory rate 18, and blood pressure 140/80. HEENT: Remarkable for multiple absent dentition. NECK: Supple, no JVD. HEART: Regular. LUNGS: Clear to auscultation. ABDOMEN: Soft. No guarding, no rigidity. Bowel sounds present. No palpable mass. EXTREMITIES: No edema. CLINICAL IMPRESSION: 1. Hypertension. 2. Psychotic disorder. 3. Hypothyroidism. 4. Allergic rhinosinusitis. 5. Degenerative joint disease. 6. Developmental delay. 7. Fall risk. 8. Methicillin-resistant Staphylococcus aureus colonization. PLAN: 1. Monitor blood pressure. 2. Antihypertensive medicine. 3. Synthroid. 4. Psychiatric evaluation and management deferred to psychiatrist. 5. Continue Claritin and Flonase for allergic rhinitis. 6. General nursing care. 7. Symptoms management. 8. Monitor blood pressure. 9. Continue current treatment plan. 10. Care plan reviewed and discussed with staff. JOB# [id number]
[2018-12-04] MEDS: Levothyroxine 0.075 Mg Tab PO SCH (06:29)
[2018-12-04] MEDS: Ferrous Sulfate 325 MG TAB PO SCH ×2 (08:41→17:03)
[2018-12-04] MEDS: Fluticasone Propionate Nasal 1 SPR SPR NS SCH (08:43)
--- NOTE | 2018-12-04 16:54 | Progress Notes ---
DATE: 12/03/2018 SUBJECTIVE: Chart was reviewed and the patient interviewed. Also discussed the patient's condition with the staff and reviewed records and labs. The patient is still extremely agitated and confused and today the patient was wandering around the unit, interrupting other patients and also interrupting staff and yelling and screaming constantly. The patient also grabbed my hand and tried to hit his head with my hand and I have to stop him from doing that. He is still confused and he is still easily agitated and irritable mood. He also still has difficulty following directions because of his mental ability. Otherwise, the patient is compliant with taking her medications with no side effects of medications. ASSESSMENT: The patient is still agitated and aggressive and can be dangerous to others. TREATMENT PLAN: Continue to monitor his behavior and his condition closely. Also, continue adjusting psychotropic medications and work on behavioral modification. Also, we will increase Seroquel to 50 mg 3 times a day. [facility]# [id number]
[2018-12-04] MEDS: OLANZapine 10 mg Oral Disintegrating Tab PO SCH (20:38)
--- NOTE | 2018-12-05 05:40 | Progress Notes ---
DATE: 12/04/2018 SUBJECTIVE: Chart was reviewed and the patient interviewed. Also discussed the patient's condition with the staff and reviewed records and labs. The patient is still easily agitated and he is still running up and down the hallway and have difficulty sleeping at night. The patient also is still preoccupied. The patient also is still confused and suspicious and paranoid. Otherwise, the patient continued to take Depakote 250 mg twice a day and Seroquel increased to 50 mg 3 times a day and Zyprexa 10 mg at bedtime. The patient also continued to take Klonopin 1 mg twice a day. The patient is still agitated and is still psychotic and needs close monitoring. TREATMENT PLAN: Continue to monitor his behavior and his condition closely. Also, continue adjusting psychotropic medications. Depakote blood level came back to be 29.6, which is subtherapeutic. We will continue current medications, but also we will increase Depakote to 500 mg twice a day and we will continue to follow up. JOB# [id number]
[2018-12-05] MEDS: Levothyroxine 0.075 Mg Tab PO SCH (06:40)
[2018-12-05] MEDS: Ferrous Sulfate 325 MG TAB PO SCH ×2 (08:07→17:28)
[2018-12-05] MEDS: Fluticasone Propionate Nasal 1 SPR SPR NS SCH (08:19)
[2018-12-05] MEDS ORDERED: Haloperidol Lactate 5 mg/mL 1mL Vial IM STA (11:38)
[2018-12-05] MEDS: OLANZapine 10 mg Oral Disintegrating Tab PO SCH (21:21)
--- NOTE | 2018-12-05 23:48 | Progress Notes ---
DATE: 12/05/[address] Feliciano. Case was discussed with staff of the patient, reviewed records. The patient ____ seeing before covering for Dr. Feliciano. The patient continues to be easily agitated, running up and down the hallway. He was at the nurses' station today when I came and he was very loud, aggressive, threatening, though he cannot talk, but he was trying to attack staff, continuing preoccupied, confused, suspicious and paranoid. He is compliant with the medication with no side effects, no sedation or nausea, no extrapyramidal symptoms. He had to be given Haldol, Ativan, and Benadryl because of his extreme agitation. Dr. Feliciano increased his Depakote today to 500 mg twice a day and I ordered for him a stat Haldol. No side effects to the medication, no sedation, no nausea, no extrapyramidal symptoms. His Seroquel was increased to 50 mg 3 times a day 2 days ago and he is on olanzapine 10 mg at bedtime, which I will be increasing to 50 mg at bedtime and no side effects with the medication, no sedation, no nausea, no extrapyramidal symptoms. We will continue to work with the patient in group therapy, milieu therapy, and adjust the medication as needed. JOB# [id number]
[2018-12-06] MEDS: Levothyroxine 0.075 Mg Tab PO SCH (06:33)
[2018-12-06] MEDS: Ferrous Sulfate 325 MG TAB PO SCH ×2 (08:25→17:28)
[2018-12-06] MEDS: Fluticasone Propionate Nasal 1 SPR SPR NS SCH (08:28)
[2018-12-06] MEDS: OLANZapine 10 mg Oral Disintegrating Tab PO SCH (21:40)
--- NOTE | 2018-12-06 23:45 | Progress Notes ---
DATE: 12/06/2018 SUBJECTIVE: Case was discussed with staff of the patient, reviewed records. The patient continues to be unpredictable, impulsive, ____ in meds he has had yesterday. Continues to have poor insight. He continues to be unpredictable, impulsive, needing redirection. He had to be medicated yesterday. No side effects of the medication, no sedation, no nausea, no extrapyramidal symptoms. I increased the olanzapine to 15 mg at bedtime with no side effects, no sedation, no nausea, and no extrapyramidal symptoms. He was also on Seroquel 50 mg 3 times a day. We will continue the patient in group therapy, milieu therapy, and adjust medication as needed. JOB# [id number]
[2018-12-07] MEDS: Levothyroxine 0.075 Mg Tab PO SCH (06:48)
[2018-12-07] MEDS: Ferrous Sulfate 325 MG TAB PO SCH ×2 (08:09→16:26)
[2018-12-07] MEDS: Fluticasone Propionate Nasal 1 SPR SPR NS SCH (09:00)
[2018-12-07] MEDS: OLANZapine 10 mg Oral Disintegrating Tab PO SCH (21:00)
[2018-12-08] MEDS: Levothyroxine 0.075 Mg Tab PO SCH (06:30)
[2018-12-08] MEDS: Ferrous Sulfate 325 MG TAB PO SCH ×2 (08:09→17:34)
--- NOTE | 2018-12-08 10:08 | Progress Notes ---
DATE: 12/07/2018 PSYCHIATRIC PROGRESS NOTE SUBJECTIVE: Chart reviewed and the patient interviewed. Also discussed the patient's condition with the staff and reviewed records and labs. The patient is still extremely agitated and he is still delusional and he is still in angry and irritable mood. The patient also is still tried to grab people and hitting himself. The patient also still needs lots of redirections. The patient also still has difficulty following any directions. Otherwise, the patient continued to take Seroquel, Zyprexa and Depakote with no side effects. ASSESSMENT: The patient is still agitated and is still in irritable mood. TREATMENT PLAN: Continue to monitor behavior and condition closely. Also, continue adjusting psychotropic medications and working on behavioral modification. [facility]# [id number]
--- NOTE | 2018-12-08 11:47 | Progress Notes ---
DATE: 12/08/2018 PSYCHIATRIC PROGRESS NOTE SUBJECTIVE: Chart reviewed and the patient interviewed. Also discussed the patient's condition with the staff and reviewed records and labs. The patient seems to be slightly calmer today, but he is still confused and he is still actively hallucinating. The patient also is still restless and is still wandering around, but slightly easier to redirect him. The patient denies any intention to harm himself or others, but at the same time, he is actually confused and he is just acting bizarre. ASSESSMENT: The patient is still confused and considered to be gravely disabled, but calmer than before. TREATMENT PLAN: Continue to monitor his behavior and condition closely. Also, continue adjusting psychotropic medications. Also, we will get a Tegretol blood level today and we will continue to follow up. JOB# [id number]
[2018-12-08] MEDS: Fluticasone Propionate Nasal 1 SPR SPR NS SCH (13:22)
[2018-12-08] MEDS: OLANZapine 10 mg Oral Disintegrating Tab PO SCH (20:35)
[2018-12-09] MEDS: Levothyroxine 0.075 Mg Tab PO SCH (06:33)
[2018-12-09] MEDS: Ferrous Sulfate 325 MG TAB PO SCH ×2 (08:16→17:32)
[2018-12-09] MEDS: Fluticasone Propionate Nasal 1 SPR SPR NS SCH (08:24)
--- NOTE | 2018-12-09 10:38 | Progress Notes ---
DATE: 12/09/2018 PSYCHIATRIC PROGRESS NOTE SUBJECTIVE: Chart reviewed and the patient interviewed. Also discussed the patient's condition with the staff and reviewed records and labs. The patient is still confused and anxious. The patient also is still wandering into other patients' rooms. Also, is still having episodes of agitation. On the other hand, decreased hitting himself and he is not as agitated and easier to redirect him. The patient also is compliant with taking medications and seems to be more cooperative with his treatment. ASSESSMENT: The patient is still psychotic, but less confused. TREATMENT PLAN: Continue monitoring his behavior and condition. Also, continue adjusting psychotropic medications. Also, planning to contact the application support administrator of the [facility] where he lives to plan for his discharge hopefully tomorrow. [facility]# [id number]
[2018-12-09] MEDS: OLANZapine 10 mg Oral Disintegrating Tab PO SCH (21:14)
[2018-12-10] MEDS: Levothyroxine 0.075 Mg Tab PO SCH (06:30)
[2018-12-10] MEDS: Fluticasone Propionate Nasal 1 SPR SPR NS SCH (09:08)
[2018-12-10] MEDS: Ferrous Sulfate 325 MG TAB PO SCH ×2 (09:10→16:57)
[2018-12-10] MEDS: OLANZapine 10 mg Oral Disintegrating Tab PO SCH (21:31)
--- NOTE | 2018-12-10 22:46 | Progress Notes ---
DATE: 12/10/2018 SUBJECTIVE: Chart reviewed and patient interviewed. Also discussed the patient's condition with the staff and reviewed records and labs. The patient is still actively responding to internal stimuli and talking to himself. The patient also is still agitated and restless and has disorganized thoughts, but on the other hand, the patient does not hit himself like before and seems that he is less agitated. The patient also is compliant with taking his medications with no side effects of medications. I spoke with patient's licensed home inspector at the custodial where he lives and she will come to interview the patient today, hopefully it is planned that he will be discharged tomorrow. ASSESSMENT: The patient is less agitated. TREATMENT PLAN: Continue to monitor his behavior and his condition closely. Also, continue adjusting his medications and we will continue to follow up. JOB# [id number]
[2018-12-11] MEDS: Levothyroxine 0.075 Mg Tab PO SCH (06:48)
[2018-12-11] MEDS: Ferrous Sulfate 325 MG TAB PO SCH (08:20)
[2018-12-11] MEDS: Fluticasone Propionate Nasal 1 SPR SPR NS SCH (08:23)
--- NOTE | 2018-12-12 16:43 | Discharge Summary ---
DATE OF DISCHARGE: 12/11/2018 PATIENT'S AGE: 68. SEX: Male. PHYSICIAN: Dr. Feliciano PRIMARY DIAGNOSIS: Unspecified psychosis. SECONDARY DIAGNOSIS: Developmental disability, moderate to severe, with psychotic features and behavioral disturbances. REASON FOR HOSPITALIZATION: The patient was admitted to the hospital because of increased agitation and irritability in the long-term where he lives at. The patient was hitting himself strongly in his head and face and was not able to follow any directions and I tried to do some adjustment to his medications ____ with no success. HOSPITAL COURSE: The patient continued to be agitated and continued to be ____ hitting himself strongly and was easily irritable and was not able to follow directions. The patient was given Seroquel and the dose adjusted to 50 mg 3 times a day and Zyprexa 15 mg at bedtime. That helped the patient to slightly start to be calmer and to be less irritable and less agitated. The patient also was given Depakote in the dose of 500 mg twice a day and Klonopin 1 mg twice a day. The patient was not as agitated. The patient also was interacting more. He was not hitting himself as before. The patient was discharged from the hospital. Physical exam of the patient showed no major medical problems. The patient was monitored closely for any medical problems by Dr. Rojas. AFTER DISCHARGE PLANS: The patient discharged from the hospital and returned to his long-term with plans for outpatient treatment there. EXPECTED OUTCOME AFTER DISCHARGE: Fair if the patient continues his psychotropic medications and follow up with discharge plans. [facility]# [id number]
== END 2018-12-11 15:45 | DRG 885 ==
LOC: ER 09:25 → GERO 14:37
PROVIDERS: ADMIT Psychiatry & Neurology Psychiatry; ATTEND Psychiatry & Neurology Psychiatry
DX: F29 Unspecified psychosis not due to a substance or known physiological condition (principal); F72 Severe intellectual disabilities; I10 Essential (primary) hypertension; J30.9 Allergic rhinitis, unspecified; M19.90 Unspecified osteoarthritis, unspecified site; E03.9 Hypothyroidism, unspecified; F03.90 Unspecified dementia, unspecified severity, without behavioral disturbance, psychotic disturbance, mood disturbance, and anxiety; K21.9 Gastro-esophageal reflux disease without esophagitis; K27.9 Peptic ulcer, site unspecified, unspecified as acute or chronic, without hemorrhage or perforation; Z91.81 History of falling; Z22.322 Carrier or suspected carrier of Methicillin resistant Staphylococcus aureus
CPT/HCPCS: 36415-UA; 80053-TC; 80061-TC; 80164-TC; 80307; 80320-TC; 80329-TC; 81001-TC; 83036-90; 84443-TC; 84484-TC; 85025-TC; 86592-TC; 93005; G0410; J1200; J1630; J2060; J7613; Z7610